=== PATIENT | female | born 1965 | race Caucasian/White ===

== ENCOUNTER → 2020-03-28 10:41 | Outpatient (CLI) | payer BC, SELFPAY ==
--- NOTE | ~2020-03-28 | DEXA_ITS ---
Bone Density Report Name: Jessica Cordon Age: 54 Sex: Female Ethnicity: White Date of : 1965 Indication: postmenopausal; screening for osteoporosis; parental hip fracture; Referring Provider: FALLON ALCALA Study: Bone densitometry was performed. Exam Date: March 28, 2020 Accession number: [id number] Bone Density: Region BMD T-score Z-score Classification AP Spine (L1-L4) 0.833 -1.9 -0.9 Osteopenia Femoral Neck (Left) 0.638 -1.9 -0.8 Osteopenia Total Hip (Left) 0.722 -1.8 -1.1 Osteopenia Femoral Neck (Right) 0.622 -2.0 -1.0 Osteopenia Total Hip (Right) 0.689 -2.1 -1.4 Osteopenia Total Hip Mean 0.706 -2.0 -1.3 Osteopenia World Health Organization criteria for BMD impression classify patients as: Normal (T-score at or above -1.0), Osteopenia (T-score between -1.0 and -2.5), or Osteoporosis (T-score at or below -2.5). 10-year Fracture Risk(1): Major Osteoporotic Fracture 15% Hip Fracture 1.0% Reported Risk Factors: [place] (), Neck BMD=0.622, BMI=24.1, parental fracture (1) FRAX(R) Version 3.08. Fracture probability calculated for an untreated patient. Fracture probability may be lower if the patient has received treatment. Clinical Information Provided by Patient: Parent has had a hip fracture Has used the following medications: Vitamin D, Calcium Patient maximum height was 68 Menopause Age: 53 Drinks caffeinated beverages Onset of menses at age 11 Number of children 2 Impression: The patient has low bone mass, based on the Right Total Hip T-score. The patient has an estimated ten-year risk of hip fracture of 1% and an estimated ten-year risk of major fracture of 15%, based on the WHO FRAX algorithm. The patient has risk factors, including: parental hip fracture. Discussion: BONE DENSITY IS LOW AT ONE OR MORE SKELETAL SITES. This patient's lowest T-score is low at one or more skeletal sites. It meets the World Health Organization's (WHO) criteria for ?low bone mass? (T-score between -1.0 and -2.5). The patient's 10-year risk of fracture as calculated by FRAX is less than the threshold where pharmacological therapy is recommended by the National Osteoporosis Foundation (NOF). However, all treatment decisions require clinical judgment and consideration of individual patient factors, including patient preferences, comorbidities, previous drug use, risk factors not captured in the FRAX model (e.g., frailty, falls, vitamin D deficiency, increased bone turnover, interval significant decline in bone density) and possible under or overestimation of fracture risk by FRAX. The patient should follow a healthful lifestyle (good nutrition with adequate calcium and vitamin D, and appropriate weight-bearing exercise). Follow-Up: Consider repeating this study in 2 to 3 years to reasses
--- NOTE | ~2020-03-28 | MM_ITS ---
EXAMINATION: MM screening rachel BI w curt HISTORY: Screening mammogram TECHNIQUE: Craniocaudal and mediolateral oblique 3-D tomosynthesis images were obtained and synthetic 2-D images were generated. CAD analysis was submitted and interpreted. COMPARISON: 12/19/2018, bilateral digital screening mammogram examinations BREAST PARENCHYMAL COMPOSITION: The breasts are heterogeneously dense, which may obscure small masses . FINDINGS: There is no evidence of suspicious mass, calcification, or architectural distortion to sugg est malignancy in either breast. There has been no suspicious interval change. IMPRESSION: 1. No mammographic evidence of malignancy. 2. Recommend routine screening mammography in one year. BI-RADS Category 1: Negative Reviewed, dictated and finalized at location A. AND RISK ANALYSIS MANAGER
== END ==
PROVIDERS: Visit Provider Obstetrics & Gynecology
DX: Z12.31 Encounter for screening mammogram for malignant neoplasm of breast (principal); Z78.0 Asymptomatic menopausal state; M85.88 Other specified disorders of bone density and structure, other site; M85.852 Other specified disorders of bone density and structure, left thigh; M85.851 Other specified disorders of bone density and structure, right thigh
CPT/HCPCS: 77063; 77067; 77080

== ENCOUNTER → 2022-06-15 10:14 | Outpatient (CLI) | payer BC, SELFPAY ==
--- NOTE | ~2022-06-15 | DEXA_ITS ---
Bone Density Report Name: BONNIE SALMERON Age: 56 Sex: Female Ethnicity: White Date of : 1965 Indication: osteopenia; parental hip fracture; postmenopausal Referring Provider: FALLON ALCALA Study: Bone densitometry was performed. Exam Date: June 15, 2022 Accession number: [id number] Bone Density: Region BMD T-score Z-score Classification AP Spine (L1-L4) 0.812 -2.1 -0.9 Osteopenia Femoral Neck (Left) 0.606 -2.2 -1.0 Osteopenia Total Hip (Left) 0.693 -2.0 -1.2 Osteopenia Femoral Neck (Right) 0.623 -2.0 -0.9 Osteopenia Total Hip (Right) 0.697 -2.0 -1.2 Osteopenia Total Hip Mean 0.695 -2.0 -1.2 Osteopenia World Health Organization criteria for BMD impression classify patients as: Normal (T-score at or above -1.0), Osteopenia (T-score between -1.0 and -2.5), or Osteoporosis (T-score at or below -2.5). 10-year Fracture Risk(1): Major Osteoporotic Fracture 17% Hip Fracture 1.3% Reported Risk Factors: [place] (), Neck BMD=0.606, BMI=25.7, parental fracture (1) FRAX(R) Version 3.08. Fracture probability calculated for an untreated patient. Fracture probability may be lower if the patient has received treatment. Previous Exams: Region Exam Age BMD T-score BMD Change BMD Change Date g/cm2 vs Baseline vs Previous AP Spine(L1-L4) 06/15/2022 56 0.812 -2.1 -0.021 -0.021 03/28/2020 54 0.833 -1.9 Total Hip(Left) 06/15/2022 56 0.693 -2.0 -0.029* -0.029* 03/28/2020 54 0.722 -1.8 Total Hip(Right) 06/15/2022 56 0.697 -2.0 0.008 0.008 03/28/2020 54 0.689 -2.1 *Denotes significance at 95% confidence level, LSC for AP Spine = 0.022 g/cm2, LSC for Total Hip = 0.027 g/cm2 Clinical Information Provided by Patient: Parent has had a hip fracture Has used the following medications: Vitamin D, Calcium Patient maximum height was 68 Menopause Age: 53 Drinks caffeinated beverages Onset of menses at age 11 Number of children 2 Impression: The patient has low bone mass, based on the Left Femoral Neck T-score. The patient has an estimated ten-year risk of hip fracture of 1.3% and an estimated ten-year risk of major fracture of 17%, based on the WHO FRAX algorithm. The patient has risk factors, including: parental hip fracture. The BMD for the Total Hip(Left) decreased, changing by -0.029 since the last DXA exam. Discussion: BONE DENSITY IS LOW AT ONE OR MORE SKELETAL SIT
--- NOTE | ~2022-06-15 | MM_ITS ---
EXAMINATION: MM screening [facility] BI w curt HISTORY: Screening mammogram TECHNIQUE: Craniocaudal and mediolateral oblique 3-D tomosynthesis images were obtained and synthetic 2-D images were generated. CAD analysis was submitted and interpreted. COMPARISON: 03/28/2020, 12/19/2018, bilateral screening mammogram examinations BREAST PARENCHYMAL COMPOSITION: There are scattered areas of fibroglandular density. FINDINGS: Possible new approximately 3 x 4.5 mm mass in the posterior lower outer left breast (cranio caudal Tomosynthesis image 15/). Otherwise there is no evidence of suspicious mass, calcification, or architectural distortion to sugg est malignancy in either breast. There has been no other suspicious interval change. IMPRESSION: 1. Possible new 3 x 4.5 mm mass in posterior lower outer left breast 2. Diagnostic left mammogram and left breast ultrasound examination are recommended BI-RADS Category 0: Incomplete: Needs additional imaging evaluation. Reviewed, dictated and finalized at location A. ONAL PROJECT MANAGER IMPRESSION: 1. Possible new 3 x 4.5 mm mass in posterior lower outer left breast 2. Diagnostic left mammogram and left breast ultrasound examination are recomme nded BI-RADS Category 0: Incomplete: Needs additional imaging evaluation.
== END ==
PROVIDERS: PCP Obstetrics & Gynecology; Visit Provider Obstetrics & Gynecology
DX: Z12.31 Encounter for screening mammogram for malignant neoplasm of breast (principal); R92.8 Other abnormal and inconclusive findings on diagnostic imaging of breast; M85.88 Other specified disorders of bone density and structure, other site; M85.852 Other specified disorders of bone density and structure, left thigh; M85.851 Other specified disorders of bone density and structure, right thigh
CPT/HCPCS: 77063; 77067; 77080

== ENCOUNTER → 2022-07-05 07:52 | Outpatient (CLI) | payer BC, SELFPAY ==
--- NOTE | ~2022-07-05 | MMUS_ITS ---
EXAMINATION: MM diagnostic rachel LT w curt, US breast LT limited HISTORY: Possible new 3 x 4.5 mm mass in posterior lower outer left breast on June 15, 2022 [facility] mammogram TECHNIQUE: Additional 3-D tomosynthesis images of the left breast were performed and synthetic 2-D im ages were generated. CAD analysis was submitted and interpreted. High resolution lower outer quadrant left breast ultrasound was performed. COMPARISON: June 15, 2022 bilateral screening mammogram FINDINGS: MAMMOGRAPHIC FINDINGS: There is an irregular approximately 4 mm opacity in the lower outer left breast. ULTRASOUND: 5:00 3 cm from nipple: Parallel circumscribed mildly irregular 2.2 x 4.1 x 3.3 mm hypoechoic area wit hout internal vascularity or posterior shadowing. Considering the fact that this is a new finding sin ce March 28, 2020 and a postmenopausal patient, with some irregular margins, ultrasound-guided bio psy is recommended. IMPRESSION: 1. New irregular 4 mm opacity in the lower outer left breast at 5:00 3 cm from nipple 2. Ultrasound-guided biopsy is recommended. BI-RADS category 4, suspicious findings. Dr. Bauer telephoned the report and ultrasound-guided biopsy recommendation on 07/05/2022 at 0905 hours to Azeb Garcia Reviewed, dictated and finalized at location A. ESSIONS MANAGER IMPRESSION: 1. New irregular 4 mm opacity in the lower outer left breast at 5:00 3 cm from nipple 2. Ultrasound-guided biopsy is recommended. BI-RADS category 4, suspicious findings. Dr. Bauer telephoned the report and ultrasound-guided biopsy recommendation on at 0905 hours to Azeb Garcia
== END ==
PROVIDERS: PCP Obstetrics & Gynecology; Visit Provider Obstetrics & Gynecology
DX: R92.8 Other abnormal and inconclusive findings on diagnostic imaging of breast (principal)
CPT/HCPCS: 76642; 77061; 77065; G0279

== ENCOUNTER 2023-04-03 08:38 | Emergency (ER) | payer BC, SELFPAY ==
[2023-04-03 08:40] VITALS: BP 126/77; PULSE 79; RESP 20; TEMP 36.8; O2SAT 98
--- NOTE | 2023-04-03 09:09 | ED.URI ---
HPI - URI/Sore Throat General Chief Complaint: Upper Respiratory Infection Stated Complaint: Cough/Headache/Body Aches Time Seen by Provider: 04/03/23 08:42 Source: patient Mode of arrival: ambulatory Limitations: no limitations History of Present Illness HPI Narrative: Jessica is a 57-year-old female patient presenting to clinic today with complaints of cough, sore throat, headache, and body aches times 2-3 days. 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 States that the symptoms have not quite improved at this time. Denies any fever or chills. Denies any chest pain or shortness of breath. No known exposure to anyone with COVID, flu, or strep. MD elicited complaint: cough, sore throat, nasal congestion and other (Headache, body aches) Related Data Home Medications Medication Instructions Recorded Confirmed polymyxin B sulfate 10,000 See Rx Instructions .Route .COMPLEX 04/03/23 04/03/23 unit-trimethoprim 1 mg/mL eye drops Allergies Allergy/AdvReac Type Severity Reaction Status Date / Time Sulfa (Sulfonamide Allergy Intermediate Rash Verified 04/03/23 08:57 Antibiotics) Review of Systems Review of Systems: Pertinent positives per HPI. Patient denies any fever, chills, rash, visual changes, dizziness, shortness of breath, chest pain, palpitations, nausea, vomiting, diarrhea, constipation, abdominal pain, or any urinary issues. PMFSH Past Medical History Medical History (Updated 04/03/23 @ 09:10 by Gerardo Woods APRN) Anemia Vaginal delivery Surgical History Surgical History Previous section [place] teeth removed Social History Social History Smoking status: Never smoker Second hand tobacco smoke exposure: No Alcohol intake: current Comments At the time of my signature, I reviewed and agree with the nursing past medical, surgical, social, and family history. There is no relevant family history pertinent to the patient complaint. Exam Narrative: General: Well-developed, well nourished, in no apparent distress Head: Normocephalic, atraumatic Eyes: Pupils equally round and reactive to light bilaterally, EOM intact, sclera and conjunctive clear, no discharge, lids normal Ears: TMs intact and clear, ear canals clear, no drainage, grossly hearing normal. Nose: Nares patent, clear nasal discharge, no inflammation, no sinus tenderness. Mouth: Oral pharynx red without lesions or masses, good dentition, MMM. Neck: Supple, trachea midline, enlargement of anterior cervical nodes, no thyroid masses or goiter palpable. Cardio: Regular rate and rhythm, s1 and s2 normal, no murmur appreciated. Resp: Clear to auscultation bilaterally, no rhonchi, rales, wheezing or rubs Course Course Emergency Course: Portions of this record may have been created with voice recognition software. Level of Care: Express Care Visit Vital Signs Vital signs: Vital Signs Temperature 36.8 C 04/03/23 08:40 Pulse Rate 79 04/03/23 08:40 Respiratory Rate 20 04/03/23 08:40 Blood Pressure 126/77 04/03/23 08:40 Pulse Oximetry 98 04/03/23 08:40 Oxygen Delivery Room Air 04/03/23 08:40 Temperature 36.8 C 04/03/23 08:40 Pulse Rate 79 04/03/23 08:40 Respiratory Rate 20 04/03/23 08:40 Blood Pressure 126/77 04/03/23 08:40 Pulse Oximetry 98 04/03/23 08:40 Oxygen Delivery Room Air 04/03/23 08:40 Vital signs reviewed MDM - URI/Sore Throat MDM Narrative Medical decision making narrative: At the time of visit patient is resting comfortably on the exam table. Patient is nontoxic appearing. Strep testing COVID testing was performed. Strep COVID test was negative. Strep was positive. Will send in amoxicillin prescription. Supportive measures were discussed with the patient she voiced understanding dis
== END 2023-04-03 09:13 | disposition home or self-care (01) ==
PROVIDERS: Emergency Provider Nurse Practitioner Family; PCP Family Medicine
DX: J02.0 Streptococcal pharyngitis (principal); Z20.822 Contact with and (suspected) exposure to COVID-19
CPT/HCPCS: 87426; 87880; 99213; C9803; G0463

== ENCOUNTER 2023-04-27 08:37 | Emergency (ER) | payer BC, SELFPAY ==
[2023-04-27 08:44] VITALS: BP 121/67; PULSE 82; RESP 16; TEMP 36.6; O2SAT 97
--- NOTE | 2023-04-27 09:22 | ED.URI ---
HPI - URI/Sore Throat General Chief Complaint: Upper Respiratory Infection Stated Complaint: Cough/Headache/Body Aches Time Seen by Provider: 04/27/23 09:22 Source: patient, RN notes reviewed and old records reviewed Mode of arrival: ambulatory Limitations: no limitations History of Present Illness HPI Narrative: 57 year old female presents to [facility] care with complaints of body aches, headaches, cough and sinus drainage since Saturday 5 days duration. Patient reports that cough at night is keeping her awake, has taken Delsym cough syrup and Tylenol and Ibuprofen for her symptoms. Patient reports that she has felt feverish but has not taken her temperature. Patient denies any shortness of breath, no tachypnea noted, respirations even and nonlabored. MD elicited complaint: fever, cough, rhinorrhea, nasal congestion and other (headache and body aches) Onset (ago): day(s) (5) Severity: moderate Able to tolerate fluids by mouth: Yes Treatments prior to arrival: acetaminophen, ibuprofen and other (Delsym cough syrup) Related Data Allergies Allergy/AdvReac Type Severity Reaction Status Date / Time Sulfa (Sulfonamide Allergy Intermediate Hives Verified 04/27/23 09:03 Antibiotics) Review of Systems Review of Systems: CONSTITUTIONAL: Reports malaise, chills, sweats, or fever. EYES: Denies visual changes, redness, or discharge. ENT: Reports rhinorrhea, congestion, no sinus pain, no otalgia and no sore throat. CARDIOVASCULAR: Denies chest pain, palpitations, or edema. RESPIRATORY: Reports cough.? Denies dyspnea. GASTROINTESTINAL: Denies abdominal pain, nausea, vomiting, diarrhea SKIN: Denies rash or itching. MUSCULOSKELETAL: Reports myalgia. NEUROLOGIC: Reports headache. All systems reviewed & are unremarkable except as noted in HPI and below PMFSH Past Medical History Medical History (Updated 04/28/23 @ 00:01 by Purnima Holloway) Anemia Vaginal delivery Surgical History Surgical History Previous section [place] teeth removed Social History Social History (Updated 04/28/23 @ 09:29 by Afshan Crane NP) Smoking status: Never smoker Second hand tobacco smoke exposure: No Alcohol intake: current Substance use type: does not use Living arrangements: with family Gender identity (if verbalized by the patient): Female Comments At time of signature, agree with nursing past medical, surgical, social and family history. There is no relevant family history pertinent to the presenting complaint Exam Narrative: GENERAL: Well-appearing, well-nourished, and in no acute distress. HEAD: Normocephalic EYES: PERRLA, conjunctivae clear ENT: Nares clear, turbinates edematous and erythematous, clear discharge. Mucous membranes moist. TM pearly bowman with dull light reflex bilaterally; no tragal tenderness. Oropharynx erythematous without lesions. Tonsils not enlarged and without exudate, no drooling, no hoarseness, no trismus, uvula midline, post nasal drainage. NECK: Supple. No lymphadenopathy CHEST: Clear to auscultation, breath sounds equal. No wheezing, rhonchi, rales, or stridor. No respiratory distress, speaks in full sentences.cough,SAO2 97% on room air HEART: Regular rate and rhythm. No murmur heard. SKIN: Warm, dry, no rash. NEURO: Alert and oriented x3. PSYCH: Normal mood and affect Course Course Emergency Course: Patient is aware of diagnosis, understands and agrees to treatment plan.? Anticipatory guidance given.? Patient agrees to follow-up as directed and is aware of reasons to seek care at the emergency department. Portions of this record may have been created with voice recognition software Level of Care: Express Care Visit Vital Signs Vital signs: Vital Signs Temperature 36.6 C 04/27/23 08:44 Pulse Rate 82 04/27/23 08:44 Respiratory Rate 16 04/27/23 08:44 Blood Pressure 121/67 12
== END 2023-04-27 09:42 | disposition home or self-care (01) ==
PROVIDERS: Emergency Provider Registered Nurse; PCP Family Medicine
DX: J10.1 Influenza due to other identified influenza virus with other respiratory manifestations (principal); Z20.822 Contact with and (suspected) exposure to COVID-19
CPT/HCPCS: 87426; 87804; 99213; C9803; G0463

== ENCOUNTER 2023-05-04 08:27 | Emergency (ER) | payer BC, SELFPAY ==
[2023-05-04 08:30] VITALS: BP 96/58; PULSE 106; RESP 16; TEMP 37.5; O2SAT 98
--- NOTE | 2023-05-04 08:53 | ED.GENADULT ---
HPI - General Adult General Chief complaint: Upper Respiratory Infection Stated complaint: Cough/Fever/Headache Source: patient, RN notes reviewed and old records reviewed Mode of arrival: ambulatory Limitations: no limitations History of Present Illness HPI narrative: 49-year-old female presents to [facility] with complaints cough, congestion, myalgia, headache, shortness of breath. Patient states symptoms started around April 26 patient was seen here on April 27 and diagnosed with influenza A. Patient states is getting worse and is now having pain with inspiration, yellow phlegm production, and fevers. Onset (ago): day(s) (12-12) Related Data Allergies Allergy/AdvReac Type Severity Reaction Status Date / Time Sulfa (Sulfonamide Allergy Intermediate Hives Verified 04/27/23 09:03 Antibiotics) Review of Systems Constitutional: Constitutional: Reports no additional constitutional complaints, Reports body ache(s), Reports chills, Reports fatigue, Reports fever(s) and Denies headache(s) Eyes: Eyes: Reports no additional eye complaints and Denies blurry vision ENT: Reports system reviewed and no additional complaints, except as documented, Denies vertigo, Denies dizziness, Denies ear discharge, Denies otalgia, Denies facial pain, Reports headache(s), Reports nasal congestion, Denies nasal discharge, Reports sinus pain, Reports sinus pressure and Denies sore throat Cardiovascular: Cardiovascular: Reports no additional cardiovascular complaints, Denies chest pain, Denies chest pain at rest, Denies rapid heart rate and Denies dyspnea Respiratory: Respiratory: Reports no additional respiratory complaints, Reports chest congestion, Reports cough, Reports pain on inspiration, Reports pain with cough and Denies dyspnea Gastrointestinal: Gastrointestinal: Denies abdominal pain, Denies diarrhea, Denies nausea and Denies vomiting Integumentary/Breasts: Skin/Breast: Denies rash Neurologic: Reports system reviewed and no additional complaints, except as documented, Denies vertigo, Denies dizziness and Denies headache(s) Endocrine: Endocrine: Denies fatigue [facility] Past Medical History Medical History (Updated 05/04/23 @ 09:00 by Gale Bundy APRN) Anemia Vaginal delivery Surgical History Surgical History Previous section [place] teeth removed Social History Social History Smoking status: Never smoker Second hand tobacco smoke exposure: No Alcohol intake: current Substance use type: does not use Living arrangements: with family Gender identity (if verbalized by the patient): Female Comments At the time of my signature, I reviewed and agree with the nursing past medical, surgical, social, and family history. There is no relevant family history pertinent to the patient complaint. Exam Const: General: cooperative, no acute distress, ill appearing acutely and well nourished Nutritional Appearance: well nourished Orientation/consciousness: patient oriented x3 Limitations: no limitations HENMT: Head: normal to inspection and normocephalic Ears: external ears normal, TM's normal bilaterally, mastoids normal and Abnormal EAC present Face/Nose/Sinus: normal facial exam Face and sinus: normal facial exam Mouth: Yes Normal oral and palatal mucosa present, Yes oropharynx normal and Yes moist mucous membranes Throat: uvula midline, posterior oropharynx abnormal erythema and no uvular edema Eyes: General: appearance normal, both eyes and all related structures Sclera: sclerae normal Pupils: Equal, round and reactive pupils present Resp: Effort & Inspection: normal respiratory effort, able to speak in complete sentences, no audible wheezes, no cough, no respiratory distress and no retractions Auscultation: clear to auscultation bilaterally, no crackles, no rales, no rhonchi and wheezes scat
== END 2023-05-04 09:06 | disposition home or self-care (01) ==
PROVIDERS: Emergency Provider Registered Nurse; PCP Family Medicine
DX: J20.9 Acute bronchitis, unspecified (principal)
CPT/HCPCS: 99213; G0463

== ENCOUNTER 2024-10-19 08:47 | Outpatient (CLI) | payer BC, SELFPAY ==
--- NOTE | ~2024-10-19 | DEXA_ITS ---
Bone Density Report Name: BONNIE SALMERON Age: 58 Sex: Female Ethnicity: White Date of : 1965 Indication: postmenopausal; screening for osteoporosis; Referring Provider: FALLON ALCALA Study: Bone densitometry was performed. Exam Date: October 19, 2024 Accession number: [id number] Bone Density: Region BMD T-score Z-score Classification AP Spine(L1-L4) 0.744 -2.8 -1.4 Osteoporosis Femoral Neck (Left) 0.596 -2.3 -1.0 Osteopenia Total Hip (Left) 0.667 -2.3 -1.3 Osteopenia Femoral Neck (Right) 0.627 -2.0 -0.7 Osteopenia Total Hip (Right) 0.703 -2.0 -1.0 Osteopenia Total Hip Mean 0.685 -2.2 -1.2 Osteopenia World Health Organization criteria for BMD impression classify patients as: Normal (T-score at or above -1.0), Osteopenia (T-score between -1.0 and -2.5), or Osteoporosis (T-score at or below -2.5). 10-year Fracture Risk: FRAX not reported because: Some T-score for Spine Total or Hip Total or Femoral Neck at or below -2.5 Clinical Information Provided by Patient: Has used the following medications: Vitamin D, Calcium Patient maximum height was 67.0 Menopause Age: 53 No regular weight bearing exercise Drinks caffeinated beverages Onset of menses at age 11 Number of children 2 Impression: The patient has osteoporosis, based on the Total Spine T-score. Discussion: INCREASED RISK OF FRACTURE. BONE DENSITY IS UNDESIRABLY LOW AT ONE OR MORE SKELETAL SITES, CONSISTENT WITH POSTMENOPAUSAL OSTEOPOROSIS. This patient's lowest T-score meets the World Health Organization's (WHO) criteria for osteoporosis at one or more sites (T-score -2.5 or below). In untreated patients, the risk of osteoporotic fracture increases approximately two-fold for each 1.0 SD decrease in T-score. Low bone density is not the only risk factor for fracture; also consider factors such as patient's age, frailty or poor health, risk of falling, risk of injury, previous osteoporotic fracture, family history of osteoporosis, cigarette smoking, low body weight, etc. Not everyone with low bone mineral density has osteoporosis; osteomalacia and other metabolic bone disorders should also be considered. Patients who have osteoporosis should be evaluated for specific diseases and conditions (secondary causes) that may cause or contribute to bone loss. The [place] Association of Clinical Endocrinologists (AACE) and National Osteoporosis Foundation (NOF) recommend pharmacologic intervention for all postmenopausal women whose T-score is in this range. The patient should follow a healthful lifestyle (good nutrition with adequate calcium and vitamin D, and appropriate weight-bearing exercise). Follow-Up: Consider a repeat BMD and Vertebral Fracture Assessment (VFA) exam in 2 years or sooner if medically necessary, to reassess this patient's status. Reported by: CHULA on 10/19/2024 9:26:00 AM. Reviewed, dictated and finalized at location A.
--- OUTSIDE RECORDS SUMMARY | 2024-10-19 09:00 | XMS_ITS | Referral Summary ---
Author Organization [place] [id number] [place] Address [address] [place] [id number] Care Team Providers Care Salt Washer Name Role Phone Luis Alberto Holm MD Unavailable [phone] Emani Bartholomew Primary Care Provider [phone] Encounters Date Type Department Care Team Description 09/22/2024 8:17 PM CDT - 09/22/2024 9:38 PM CDT Emergency [facility] Emergency Department [address] [place] [address] Brayden Anderson MD Closed head injury, initial encounter (Primary Dx); Chin laceration, initial encounter; TMJ (sprain of temporomandibular joint), initial encounter; Left shoulder strain, initial encounter; Accidental fall, initial encounter Discharge Disposition: Discharge to home or self care 09/16/2024 Orders Only [facility] Surgery [facility] Floor [address] [place] [address] Aft, Rhianna Stewart MD PhD Abnormal mammogram of both breasts (Primary Dx) from Last 3 Months Allergies Active Allergy Reactions Criticality Noted Date Comments Sulfa (Sulfonamide Antibiotics) Rash Medium 11/2018 Medications ibuprofen (ADVIL,MOTRIN) 200 mg tab/cap Take 200 mg by mouth every 6 (six) hours as needed for pain Active calcium carbonate 500 mg calcium (1,250 mg) capsule Take by mouth Active cholecalciferol (VITAMIN D-3) 1,000 unit Take 1,000 Int'l Units by mouth daily Active multivitamin tablet Active tiZANidine (ZANAFLEX) 2 mg tabletIndications:TM J (sprain of temporomandibular joint), initial encounter,Left shoulder strain, initial encounter Take 1-2 tablets (2-4 mg total) by mouth every 8 (eight) hours as needed (Take as directed to relax muscles) Collaborating physician Brayden Anderson MD 30 tablet 09/23/19 Active naproxen (NAPROSYN) 500 mg tabletIndications:Cl osed head injury, initial encounter,Chin laceration, initial encounter,TMJ (sprain of temporomandibular joint), initial encounter,Left shoulder strain, initial encounter Take 1 tablet (500 mg total) by mouth 2 (two) times a day with meals PRN pain. Collaborating physician Brayden Anderson MD 30 tablet 09/23/19 Active Active Problems Problem Noted Date Diagnosed Date Closed head injury 09/22/2024 Chin laceration 09/22/2024 TMJ (sprain of temporomandibular joint), initial encounter 09/22/2024 Left shoulder strain, initial encounter 09/23/19 Accidental fall 09/22/2024 Breast mass in female 08/09/2022 Abnormal mammogram of both breasts 08/09/2022 Immunizations Immunization Administration Dates Next Due Influenza, Quadrivalent, Spl it, Intramuscular 01/26/2019 Influenza, Quadrivalent, Spl it, Preservative Free, Intramuscular 01/17/2021,01/26/2019,03/05/2018 Influenza, Trivalent, Cell C ulture-based MDCK, Preservative Free, Antibiotic Free, Intramuscular 02/07/2023,03/09/2022 Moderna Sars-cov-2 Bivalent Vaccine 50 Mcg/0.5 mL (12+ YRS)-Blue/Linn 03/09/2022 Td, adsorbed 05/06/2004 Tdap 02/10/2019 ZOSTER Recombinant 05/26/2020,03/24/2020 Social History Tobacco Use Types Packs/Day Years Used Date Smoking Tobacco: Never Smokeless Tobacco: Never Tobacco Cessation:Counseling Given: Not Answered AUDIT-C Answer Date Recorded Q1: How often [...] feel afraid or unsafe? Denies 09/22/2024 Comments Unknown Sex and Gender Information Value Date Recorded Sex Assigned at Not on file Legal Sex Female 3:10 PM [employer] Gender Identity Not on file Sexual Orientation Not on file Last Filed Vital Signs Vital Sign Reading Time Taken Comments Blood Pressure 113/83 09/22/2024 9:37 PM CDT Pulse 64 09/22/2024 9:37 PM CDT Temperature 36.3 C (97.4 F) 09/22/2024 6:09 PM CDT Respiratory Rate 16 09/22/2024 9:37 PM CDT Oxygen Saturation 98% 09/22/2024 9:37 PM CDT Inhaled Oxygen Concentration - - Weight 68 kg (150 lb) 09/22/2024 6:09 PM CDT Height 172.7 cm (5' 8) 09/22/2024 6:09 PM CDT Body Mass Index 22.81 09/22/2024 6:09 PM CDT Plan of Treatment Not on file Medical Devices Implanted Type Area Residential Property Consultant Device Identifier Shelf Expiration Date Model / Serial / Lot [employer] Peripheral V[employer] Ultraclip Bard 17ga 10cm 2 Trigger Permanent Ultrasound [id number] - [id number] Implanted:Qty: 1 on 08/29/2022 at [facility] [employer] [id number] / / [employer] Eviva 13cm Identifier Biopsy Site Kwamp-Hjchp-55 - [id number] Implanted:Qty: 1 on 03/17/2024 at [facility] [employer] [id number] 11/28/2024 [facility] / [id number] Procedures Procedure Name Priority Date/Time Associated Diagnosis Comments CT FACIAL BONES WO CONTRAST ED 09/22/2024 6:[address] HEAD WO CONTRAST ED 09/22/2024 6:46 PM CDT XR SHOULDER LEFT 2 OR MORE VIEWS ED 09/22/2024 6:22 PM CDT SCREENING MAMMOGRAM BILATERAL W KOFI Schedule Routine, Read Routine (OP Routine) 09/02/2023 9:37 AM CDT Screening mammogram, encounter for from Last 3 Months or Most Recently Relevant to Health Maintenance Results * CT Facial Bones WO Contrast (09/22/2024 6:47 PM CDT) Anatomical Region Laterality Modality Head and Neck N/A Computed Tomogra phy 09/22/2024 8:07 PM CDT Narrative 09/22/2024 8:09 PM CDT EXAM DESCRIPTION: CT FACIAL BONES WO CONTRAST REASON FOR STUDY: Accidental fall with facial injury Patient presents status post fall from standing with a laceration to her chin, patient is on blood thinners. TECHNIQUE: Noncontrast computed tomography images through the paranasal sinuses. Reconstructed MPR images reviewed. All images stored on PACS. Automated exposure control was used as a dose optimization technique for this examination. COMPARISON: None FINDINGS: BONES: No fracture or bone lesion. SOFT TISSUES: No abscess. No inflammatory changes. SINUSES: No mucosal thickening or fluid. No mass. NASAL CAVITY: Midline nasal septum. ORBITS: No significant abnormalities visualized. TMJ: Normal. MASTOIDS: Well-aerated. IACs symmetric, grossly normal. BRAIN: Limited view. No acute findings. OTHER: No other significant finding. IMPRESSION: Unremarkable maxillofacial CT. THIS IS AN ELECTRONICALLY VERIFIED FINAL REPORT 09/22/2024 8:09 PM - Electronically signed by Tushar Veronica M.D. KH: ARJUN Report ID: [id number] Reading Location: [id number] Procedure Note Tushar Veronica MD - 09/22/2024 EXAM DESCRIPTION: CT FACIAL BONES WO CONTRAST REASON FOR STUDY: Accidental fall with facial injury Patient presents status [facility], patient is on blood thinners. TECHNIQUE: Noncontrast computed tomography images through the paranasal sinuses. Reconstructed MPR images reviewed. All images stored on PACS. Automated exposure control was used as a dose optimization technique forthis examination. COMPARISON: None FINDINGS: BONES: No fracture or bone lesion. SOFT TISSUES: No abscess. No inflammatory changes. SINUSES: No mucosal thickening or fluid. No mass. NASAL CAVITY: Midline nasal septum. ORBITS: No significant abnormalities visualized. TMJ: Normal. MASTOIDS: Well-aerated. IACs symmetric, grossly normal. BRAIN: Limited view. No acute findings. OTHER: No other significant finding. IMPRESSION: Unremarkable maxillofacial CT. THIS IS AN ELECTRONICALLY VERIFIED FINAL REPORT 09/22/2024 8:09 PM - Electronically signed by Tushar Veronica M.D. KH: ARJUN Report ID: [id number] Reading Location: [place] [id number] PROCEDURES Final Resu lt * CT Head WO Contrast (09/22/2024 6:46 PM CDT) Anatomical Region Laterality Modality Head and Neck N/A Computed Tomogra phy 09/22/2024 8:04 PM CDT Narrative 09/22/2024 8:07 PM CDT EXAM DESCRIPTION: CT HEAD WO CONTRAST REASON FOR STUDY: Accidental fall with facial injury Patient presents status post fall from standing with a laceration to her chin, patient is on blood thinners. TECHNIQUE: Axial images acquired through the brain without intravenous contrast. Images stored on PACS. Automated exposure control was used as a dose optimization technique for this examination. COMPARISON: None FINDINGS: BRAIN: No hemorrhage, edema or mass effect. No recent infarct. Normal white matter. EXTRA-AXIAL SPACES: No fluid collections. No masses. CALVARIUM: No fracture. SINUSES/MASTOIDS: No fluid or mucosal thickening. ORBITS: No significant abnormality. OTHER: No other significant abnormality. IMPRESSION: No acute intracranial findings. THIS IS AN ELECTRONICALLY VERIFIED FINAL REPORT 09/22/2024 8:07 PM - Electronically signed by Tushar DÍAZ: ARJUN Report ID: [id number] Reading Location: [id number] Procedure Note Tushar Veronica MD - 09/22/2024 EXAM DESCRIPTION: CT HEAD WO CONTRAST REASON FOR STUDY: Accidental fall with facial injury Patient presents status post fall from standing with a laceration to [facility], patient is on blood thinners. TECHNIQUE: Axial images acquired through the brain without intravenous contrast. Images stored on PACS. Automated exposure control was used asa dose optimization technique for this examination. COMPARISON: None FINDINGS: BRAIN: No hemorrhage, edema or mass effect. No recent infarct. Normal white matter. EXTRA-AXIAL SPACES: No fluid collections. No masses. CALVARIUM: No fracture. SINUSES/MASTOIDS: No fluid or mucosal thickening. ORBITS: No significant abnormality. OTHER: No other significant abnormality. IMPRESSION: No acute intracranial findings. THIS IS AN ELECTRONICALLY VERIFIED FINAL REPORT 09/22/2024 8:07 PM - Electronically signed by Tsuhar Veronica M.D. KH: ARJUN Report ID: [id number] Reading Location: [id number] [facility] IMG CT PROCEDURES Final Resu lt * XR Shoulder Left 2 or More Views (09/22/2024 6:22 PM CDT) Anatomical Region Laterality Modality Upper Extremities, Shoulder Left Comp uted Radiography 09/22/2024 7:27 PM CDT Narrative 09/22/2024 7:30 PM CDT EXAM DESCRIPTION: XR SHOULDER LEFT 2 OR MORE VIEWS REASON FOR STUDY: fall c/o a fall today. Pt was on a walk when she tripped and fell hitting her chin and left arm. TECHNIQUE: 4 radiographic view(s) of the left shoulder . COMPARISON: 02/09/2019. FINDINGS: Visualized chest is unremarkable.. Joint alignment appears normal. There is minimal acromioclavicular osteoarthritis. Glenohumeral joint space appears normal. No acute fracture or aggressive bone lesion is seen. IMPRESSION: No acute osseous findings. THIS IS AN ELECTRONICALLY VERIFIED FINAL REPORT 09/22/2024 7:30 PM - Electronically signed by Jerson Dugan M.D. MZ: MZ Report ID: [id number] Reading Location: [id number] Procedure Note Jerson Dugan MD - 09/22/2024 EXAM DESCRIPTION: XR SHOULDER LEFT 2 OR MORE VIEWS REASON FOR STUDY: fall c/o a fall today. Pt was on a walk when she tripped and fell hitting herchin and left arm. TECHNIQUE: 4 radiographic view(s) of the left shoulder . COMPARISON: 02/09/2019. FINDINGS: Visualized chest is unremarkable.. Joint alignment appears normal. Thereis minimal acromioclavicular osteoarthritis. Glenohumeral joint spaceappears normal. No acute fracture or aggressive bone lesion is seen. IMPRESSION: No acute osseous findings. THIS IS AN ELECTRONICALLY VERIFIED FINAL REPORT 09/22/2024 7:30 PM - Electronically signed by Jerson Dugan M.D. MZ: MZ Report ID: [id number] Reading Location: [id number] Brayden Anderson MD IMG XR PROCEDURES Final Res ult * Screening Mammogram Bilateral W Kofi (09/02/2023 9:37 AM CDT) Anatomical Region Laterality Modality Breast Bilateral Mammography Narrative 09/03/2023 4:43 PM CDT Mammogram Technique: Bilateral Digital Breast Tomosynthesis, Bilateral C-view 2D Screening mammogram. Views obtained: bilateral craniocaudal and bilateral mediolateral oblique. Computer Aided Detection was performed. Mammogram Findings: The present examination has been compared to prior imaging studies performed on 12/19/2018, 03/28/2020, 06/15/2022 and 07/05/2022, and at [facility] on 08/09/2022. The breasts are heterogeneously dense, which may obscure small masses. There is an area of architectural distortion with possible associated calcifications in the middle upper outer quadrant of the right breast. There is no suspicious abnormality in the left breast. Impression: Area of architectural distortion with possible associated calcifications in the right breast requires additional evaluation. Diagnostic mammogram and possible ultrasound of the right breast are recommended at this time. OVERALL FINAL ASSESSMENT: BI-RADS CATEGORY 0: Incomplete: Need additional imaging evaluation. Procedure Note Shannon Card MD - 09/03/2023 Mammogram Technique: Bilateral Digital Breast Tomosynthesis, Bilateral C-view 2D Screening mammogram. Views obtained: bilateral craniocaudal and bilateral mediolateral oblique. Computer Aided Detection was performed. Mammogram Findings: The present examination has been compared to prior imaging studies performed on 12/19/2018, 03/28/2020, 06/15/2022 and 07/05/2022, and at [facility] on 08/09/2022. The breasts are heterogeneously dense, which may obscure small masses. There is an area of architectural distortion with possible associated calcifications in the middle upper outer quadrant of the right breast. There is no suspicious abnormality in the left breast. Impression: Area of architectural distortion with possible associated calcificationsin the right breast requires additional evaluation. Diagnostic mammogramand possible ultrasound of the right breast are recommended at this time. OVERALL FINAL ASSESSMENT: BI-RADS CATEGORY 0: Incomplete: Need additional imaging evaluation. us Self Screening Mammogram IMG MAMMO PROCEDURES Fi nal Result from Last 3 Months or Most Recently Relevant to Health Maintenance [place] [id number] [place] Member Subscriber Plan / Payer (Ef fective 2019-Present) Name:Jessica Batres Relation to Subscriber:Self Name:Jessica Batres Cristel Payer ID:[id number] (NAIC) Type:HEALTHCARE/EXCHANGE Address: [address] [place] Care Teams Salt Washer Relationship Specialty Start Date End Date Emani Bartholomew PA [address] [facility] [address] [place] [address] PCP - General Donation Worker 07/18/23 Luis Alberto Holm MD [id number] [facility] [address] [facility] [address] [place] [address] Referring Physician Obstetrics and Gynecology 07/09/22
--- OUTSIDE RECORDS SUMMARY | 2024-10-19 09:01 | XMS_ITS | Clinical Summary ---
Author Organization [facility] Address [address] [place] [address] Phone Care Team Providers Care Bead Inspector Name Role Phone Josh Veliz MD Unavailable [phone] Luis Alberto Holm MD Unavailable [phone] Emani Bartholomew Primary Care Provider + Allergies Active Allergy Reactions Criticality Noted Date Comments Sulfa Antibiotics Rash Medications Multiple Vitamin (MULTI-VITAMIN PO) Active Cholecalciferol (VITAMIN D3 PO) Take 1,000 Int'l Units by mouth daily. Active Calcium Carbonate (CALCIUM 500 PO) Take by mouth. Active albuterol 108 (90 Base) MCG/ACT Aerosol Solution INHALE 2 PUFFS BY MOUTH EVERY 4 HOURS NEEDED FOR WHEEZING 8.5 g 08/13/2022 Active Acetaminophen (TYLENOL PO) Take by mouth. Active Ibuprofen (ADVIL PO) Take by mouth. Active Active Problems Problem Noted Date Diagnosed Date Umbilical hernia without obstruction and without gangrene 07/07/2015 Insomnia Encounters Date Type Department Care Team Description 07/29/2024 Results Follow-Up [facility] - Family Medicine [facility] [address] [place] [id number] Emani Bartholomew PAC LIPID PANEL, CMP (COMPREHENSIVE METABOLIC PANEL), COMPLETE BLOOD COUNT (CBC) WITH DIFF, THYROID STIMULATING HORMONE (TSH) 07/27/2024 7:40 AM CDT Lab [facility] [address] [place] [address] [facility] Well adult exam (Primary Dx) Discharge Disposition: Discharged to home or Selfcare 07/27/2024 Travel 07/20/2024 3:00 PM CDT Office Visit [facility] - [place] [address] [place] [address] Emani Bartholomew, PAC Well adult exam (Primary Dx); Encounter for immunization Discharge Disposition: Discharged to home or Selfcare 07/20/2024 Travel from Last 3 Months Immunizations Immunization Administration Dates Next Due Covid-19, Mrna, Lnp-s, Bival ent, Moderna, 50 Mcg or 25 mcg dose 03/09/2022 Covid-19, Mrna, Lnp-s, Pf, 3 0 Mcg/0.3 Ml Dose (Beautylish) 07/22/2020,07/02/2020 Influenza Vaccine 01/26/2019 Influenza Vaccine, MDCK,quad rivalent, pres free 02/07/2023,03/09/2022 Influenza Vaccine, Quadrivalent, PF 01/17/2021,0 01/26/2019,03/05/2018 Influenza, Injectable, Quadrivalent 01/26/2019 Influenza,Split Virus,Trivalent,Injectable,PF 05/07/2024 Pneumococcal conjugate PCV20 , polysaccharide FES206 conjugate, adjuvant, PF 07/20/2024 TD VACCINE 05/06/2004 TDAP Vaccine 02/10/2019 Zoster Vaccine Recombinant 05/26/2020,03/24/2020 Family History Medical History Relation Name Comments Heart Disease Father Hypertension Father Ulcerative Colitis Mother Colon claudine linsey--due to diverticulitis Relation Name Status Comments Father Alive Mother Alive Social History Tobacco Use Types Packs/Day Years Used Date Smoking Tobacco: Never Smokeless Tobacco: Never Tobacco Cessation:Counseling Given: Not Answered Alcohol Use Standard Drinks/Week Comments Yes 0 (1 standard drink = 0.6 oz pur e alcohol) social [employer] Utilities Answer Date Recorded In the past 12 months has [employer], gas, oil, or water [employer] threatened to shut off services in your home? No 07/02/2023 Social Connection and Isolation Panel Answer Date Recorded In a typical week, how many times do you talk on the phone with family, friends, or neighbors? More than three times a week 07/02/2023 How often do you get togethe r with friends or relatives? Once a week 07/02/2023 Attends Mosque Services Not on file 07/02 Active Member of Clubs or Organizations Not on f ile 07/02/2023 Attends Club or Organization Meetings Not on sanjana e 07/02/2023 Marital Status Not on file 07/02/2023 AUDIT-C Answer Date Recorded Q1: How often do you have a drink containing alc ohol? 2-4 times a month 07/02/2023 Q2: How many drinks containi ng alcohol do you have on a typical day when you are drinking? 1 or 2 07/02/2023 Q3: How often do you have si x or more drinks on one occasion? Less than monthly 07/02/2023 Overall Financial Resource Strain (CARDIA) Answe r Date Recorded How hard is it for you to pa y for the very basics like food, housing, medical care, and heating? Not very hard 07/02/2023 PHQ-2 Answer Date Recorded Total Score - Questions 1-9 20 06/01/2021 [employer] ional [employer] - Occupational Stress Questionnaire Answer Date Recorded Do you feel stress - tense, restless, nervous, or anxious, or unable to sleep at night because your mind is troubled all the time - these days? To some extent 07/02/2023 Exercise Vital Sign Answer Date Recorde d On average, how many days pe r week do you engage in moderate to strenuous exercise (like a brisk walk)? 5 days Minutes of Exercise per Session Not on file 07/02/2023 Hunger Vital Sign Answer Date Recorded Within the past 12 months, y ou worried that your food would run out before you got the money to buy more. Never true 07/02/19 24 Within the past 12 months, t he food you bought just didn't last and you didn't have money to get more. Never true 07/02/2023 PRAPARE - Transportation Answer Date Re corded In the past 12 months, has l ack of transportation kept you from medical appointments or from getting medications? No 06/07 In the past 12 months, has l ack of transportation kept you from meetings, work, or from getting things needed for daily living? No 07/02/2023 Housing Stability Vital Sign Answer Rex e Recorded In the last 12 months, was t here a time when you were not able to pay the mortgage or rent on time? No 07/02/2023 In the last 12 months, how many places have you lived? 1 07/02/2023 In the last 12 months, was t here a time when you did not have a steady place to sleep or slept in a senior care (including now)? No 07/02/2023 Education Answer Date Recorded What is the highest level of school you have completed or the highest degree you have received? 12th grade 07/12/2022 Sexually Active Control Partners Comments Yes Comments No Sex and Gender Information Value Date Recorded Sex Assigned at Not on file Legal Sex Female 10:37 PM CDT Gender Identity Not on file Sexual Orientation Not on file Last Filed Vital Signs Vital Sign Reading Time Taken Comments Blood Pressure 112/70 07/20/2024 2:57 PM CDT Pulse 63 07/20/2024 2:57 PM CDT Temperature 36.5 C (97.7 F) 07/20/2024 2:57 PM CDT Respiratory Rate 16 07/31/2023 8:56 AM CDT Oxygen Saturation 99% 07/20/2024 2:57 PM CDT Inhaled Oxygen Concentration - - Weight 69.4 kg (153 lb) 07/20/2024 2:57 PM CDT Height 170.2 cm (5' 7) 07/20/2024 2:57 PM CDT Body Mass Index 23.96 07/20/2024 2:57 PM CDT Plan of Treatment Upcoming Encounters Date Type Department Care Team (Late st Contact Info) Description 07/22/2025 3:30 PM CDT Office Visit [facility] - Family Medicine [facility] [address] [place] [phone] Emani Bartholomew, PAC [address] [place] [address] Health Maintenance Due Date Last Done Comments Cologuard 2009 Immunochemical Fecal Occult Blood 2009 Pap Smear 12/25/2021 12/25/2018, 04/09/2016 Mammogram 09/01/2024 09/02/2023, 08/05, 08/09/2022, Additional history exists Colonoscopy 06/22/2025 06/22/2015 Colorectal Cancer Screening 06/22/2025 Cervical Cancer Screening (CCS) 05/14/2028 HPV/Cotest 05/14/2028 05/14/2023 Td Immunization Every 10 Years (Adults With 1 Tdap) 02/10/2029 02/10/2019, 05/06/2004 Respiratory Syncytial Virus (RSV) Immunization (Adult) (1 - 1-dose 75+ series) 12/10/2039 Zoster Immunization Completed 05/26/2020, 0 Influenza Immunization Completed 5, 02/07/2023, 03/09/2022, Additional history exists SARS-COV-2 Immunization Completed 05/07/19 25, 02/07/2023, 03/09/2022, Additional history exists Pneumococcal Immunization (50+ years) Completed 07/20/2024 Pneumococcal Immunization Combined Discontinued 07/20/2024 Hepatitis B Immunization Discontinued Hepatitis C Virus (HCV) Screening Discontinued Human Papillomavirus (HPV) Immunization Aged Out No longer eligible based on patient's age to complete this topic Meningococcal Immunization (ACWY) Aged Out No longer eligible based on patient's age to complete this topic Rotavirus Immunization Aged Out No lo nger eligible based on patient's age to complete this topic Procedures Procedure Name Priority Date/Time Associated Diagnosis Comments THYROID STIMULATING HORMONE (TSH) Routine 07/27/2024 Well adult exam COMPLETE BLOOD COUNT (CBC) WITH DIFF Routine 07/27/2024 Well adult exam CMP (COMPREHENSIVE METABOLIC PANEL) Routine 07/27/2024 Well adult exam LIPID PANEL Routine 07/27/2024 Well adult exam MAMMOGRAM BILATERAL GENERIC 09/02/2023 12:00 AM CDT PATHOLOGY CYTOLOGY COBBLER APPRENTICE Routine 12/25/2018 from Last 3 Months or Most Recently Relevant to Health Maintenance Results * THYROID STIMULATING HORMONE (TSH) (07/27/2024) Blood 07/27/2024 Liane Peku Publicationstcher PAC CHEMISTRY ORDERABLES Fin al Result * LIPID PANEL (07/27/2024) Blood 07/27/2024 Liane Fritcher PAC CHEMISTRY ORDERABLES Fin al Result * CMP (COMPREHENSIVE METABOLIC PANEL) (07/27/2024) Blood 07/27/2024 Result [facility] Liane Fritcher PAC CHEMISTRY ORDERABLES Fin al Result * COMPLETE BLOOD COUNT (CBC) WITH DIFF (07/27/2024) Blood 07/27/2024 Liane Peku Publicationstcher PAC HEMATOLOGY ORDERABLES Fi nal Result * MAMMOGRAM BILATERAL MISCELLANEOUS (09/02/2023 12:00 AM CDT) 09/02/2023 Provider Scan IMG MAMMO ORDERABLES Final Resul t SCAN * PATHOLOGY CYTOLOGY COBBLER APPRENTICE (12/25/2018) Specimen of unknown material (specimen) Result [facility] Luis Alberto Holm MD PATHOLOGY/CYTOLOGY ORDERABLE S Final Result from Last 3 Months or Most Recently Relevant to Health Maintenance [place] [id number] [place] [id number] Care Teams Bead Inspector Relationship Specialty Start Date End Date Emani Bartholomew PAC [address] [place] [address] PCP - General Physician Supervisor [employer] 07/17/23 Josh Veliz MD [address] [facility] [address] [place] [address] General Surgery 07/11/15 Luis Alberto Holm MD [address] [facility] [address] [place] [address] Obstetrics & Gynecology 07/18/16
--- OUTSIDE RECORDS SUMMARY | 2024-10-19 09:01 | XMS_ITS | Clinical Summary ---
Author Organization [place] [id number] [place] Address [address] [place] [id number] Care Team Providers Care Software Business Analyst Name Role Phone Luis Alberto Holm MD Unavailable [phone] Emani Bartholomew Primary Care Provider [phone] Allergies Active Allergy Reactions Criticality Noted Date [...] physician Brayden Anderson MD 30 tablet 09/23/19 25 Active naproxen (NAPROSYN) 500 mg tabletIndications:Cl osed head injury, initial encounter,Chin laceration, initial encounter,TMJ (sprain of temporomandibular joint), initial encounter,Left shoulder strain, initial encounter Take 1 tablet (500 mg total) by mouth 2 (two) times a day with meals PRN pain. Collaborating physician Brayden Anderson MD 30 tablet 09/23/19 25 Active Active Problems Problem Noted Date Diagnosed Date Closed head injury 09/22/2024 Chin laceration 09/22/2024 TMJ (sprain of temporomandibular joint), initial encounter 09/22/2024 Left shoulder strain, initial encounter 09/23/19 25 Accidental fall 09/22/2024 Breast mass in female 08/09/2022 Abnormal mammogram of both breasts 08/09/2022 Encounters Date Type Department Care Team Description 09/22/2024 8:17 PM CDT - 09/22/2024 9:38 PM CDT Emergency [facility] Emergency Department [address] [place] [address] Brayden Anderson MD Closed head injury, initial encounter (Primary Dx); Chin laceration, initial encounter; TMJ (sprain of temporomandibular joint), initial encounter; Left shoulder strain, initial encounter; Accidental fall, initial encounter Discharge Disposition: Discharge to home or self care 09/16/2024 Orders Only [facility] Surgery [facility] [address] [place] [phone] Aft, Rhianna Stewart MD PhD Abnormal mammogram of both breasts (Primary Dx) from Last 3 Months Immunizations Immunization Administration Dates Next Due Influenza, Quadrivalent, Spl it, Intramuscular 01/26/2019 Influenza, Quadrivalent, Spl it, Preservative Free, Intramuscular 01/17/2021,01/26/2019,03/05/2018 Influenza, Trivalent, Cell C ulture-based MDCK, Preservative Free, Antibiotic Free, Intramuscular 02/07/2023,03/09/2022 Moderna Sars-cov-2 Bivalent Vaccine 50 Mcg/0.5 mL (12+ YRS)-Blue/Linn 03/09/2022 Td, adsorbed 05/06/2004 Tdap 02/10/2019 ZOSTER Recombinant 05/26/2020,03/24/2020 Surgical History Surgery Date Site/Laterality Comments SECTION BLADDER SURGERY BREAST BIOPSY 08/29/2022 Left BREAST BIOPSY 03/17/2024 Right Medical History Medical History Date Comments Osteoporosis Family History Medical History Relation Name Comments Heart disease Other Relation Name Status Comments Other Social History Tobacco Use Types Packs/Day Years [...] on file Legal Sex Female 3:10 PM OCC MED PHYSICIAN Gender Identity Not on file Sexual Orientation Not on file Obstetrics History Last Filed Vital Signs Vital Sign Reading [...] 09/22/2024 6:09 PM CDT Plan of Treatment Health Maintenance Due Date Last Done Comments Cervical Cancer Screening 1964 Colon Cancer Screening-Colonoscopy 1964 Depression Screening 1964 Hepatitis C Screening 1964 Hepatitis B Screening 1982 Regular Well Visit/Exam 18-64 1982 Covid-19 Vaccine ( season) 2024 03/09/2022, 07/22/2020, 07/02/2020 Breast Cancer Screening-Mammogram 09/01/2024 09/02/2023, 12/19/2018 DTaP/Tdap/Td Vaccine (2 - Td or Tdap) 02/10/2029 02/10/2019, 05/06/2004 Zoster Vaccine Completed 05/26/2020, 03/24/2020 Influenza Vaccine Completed 05/07/2024, , 03/09/2022, Additional history exists Pneumococcal vaccine <65 Aged Out No longer eligible based on patient's age to complete this topic Medical Devices Implanted Type Area Bar Gauger And Lubricator Tender Device Identifier Shelf Expiration Date Model / Serial / Lot Bard Peripheral Vascular Ultraclip Bard 17ga 10cm 2 Trigger Permanent Ultrasound [id number] - [id number] Implanted:Qty: 1 on 08/29/2022 at [facility] [employer] [id number] / / [employer] Eviva 13cm Identifier Biopsy Site [id number] - [id number] Implanted:Qty: 1 on 03/17/2024 at [facility] [employer] [id number] 11/28/2024 [facility]-EVIV A-13 / / [id number] Procedures Procedure Name Priority Date/Time Associated Diagnosis [...] 8:09 PM - Electronically signed by Tushar DÍAZ: ARJUN Report ID: [id number] Reading Location: [place] [address] Procedure Note Tushar Veronica MD - 09/22/2024 EXAM DESCRIPTION: CT FACIAL BONES WO CONTRAST REASON FOR STUDY: Accidental fall with facial injury Patient presents status post fall from standing with a laceration to [facility], patient is on blood thinners. TECHNIQUE: Noncontrast [...] 8:09 PM - Electronically signed by Tushar DÍAZ: ARJUN Report ID: [id number] Reading Location: [place] [address] PROCEDURES Final Resu [...] 8:07 PM - Electronically signed by Tushar Veronica M.D. KH: ARJUN Report ID: [id number] Reading Location: [id number] Procedure Note Tushar Veronica MD - 09/22/2024 EXAM DESCRIPTION: CT HEAD WO CONTRAST REASON FOR STUDY: Accidental fall with facial injury Patient presents status post fall from standing with a laceration to herchin, patient is on blood thinners. TECHNIQUE: Axial [...] 8:07 PM - Electronically signed by Tushar Veronica M.D. KH: KH Report ID: [id number] Reading Location: [id number] Bravo DIAS IMG CT PROCEDURES Final Resu [...] Electronically signed by Jerson Dugan M.D. MZ: PB Report ID: [id number] Reading Location: [id number] Procedure Note Jerson Dugan MD - 09/22/2024 [...] Jerson Dugan M.D. MZ: MZ Report ID: [id number] Reading Location: [place] [address] us Brayden Anderson MD IMG XR PROCEDURES Final [...] 12/19/2018, 03/28/2020, 06/15/2022 and 07/05/2022, and at [facility] on 08/09/2022. The breasts are heterogeneously dense, [...] 12/19/2018, 03/28/2020, 06/15/2022 and 07/05/2022, and at [facility] on 08/09/2022. The breasts are heterogeneously dense, [...] Most Recently Relevant to Health Maintenance [place] [employer] [phone] [place] Care Teams Software Business Analyst Relationship Specialty Start Date End Date Emani Bartholomew PA [address] [address] PCP - General Bander Operator 07/18/23 Luis Alberto Holm MD [address] [facility] [address] [facility] [address] [place] [address] Referring Physician Obstetrics and Gynecology 07/09/22
--- OUTSIDE RECORDS SUMMARY | 2024-10-19 09:01 | XMS_ITS | Encounter Summary ---
Author Organization [facility] Healthcare Address [address] [place] [address] Care Team Providers Care Laminator Printed Circuit Boards Name Role Phone Aurelia Luciano MD Primary Care Provider [phone] Reason for Visit * Diagnostic Imaging (Routine) - Closed Specialty Diagnoses / Procedures Referred By Stan rosario Referred To Contact Procedures Breast Imaging Screening Outside Reference Kishan Danielle NP Phone: tel: fax: Referral ID Status Reason Start Date Expiration Date Visits Re quested Visits Authorized [id number] Closed 07/12/2022 08/11/2023 1 1 Encounter Details Date Type Department Care Team (Late st Contact Info) Description 03/28/2020 Hospital Encounter [facility] [address] [place] [phone] Social History Tobacco Use Types Packs/Day Years [...] on file Legal Sex Female 3:10 PM CRITICAL CARE REGISTERED NURSE Gender Identity Not on file Sexual Orientation Not on file documented as of this encounter Functional Status * Audit-C Score Answer Date of Assessment Author 2 [...] SCREENING OUTSIDE REFERENCE Routine 03/28/2020 12:00 AM CRITICAL CARE REGISTERED NURSE documented in this encounter Results * Breast Imaging Screening Outside Reference (03/28/2020 12:00 AM CRITICAL CARE REGISTERED NURSE) Impressions [facility] - 07/12/2022 2:36 PM CRITICAL CARE REGISTERED NURSE These images are for Reference purposes only and have not been reviewed by [facility]. There will be no report generated by a [facility]iologist. Narrative [facility]_M[facility]MO[facility] - 07/12/2022 2:36 PM CRITICAL CARE REGISTERED NURSE EXAMINATION: Images For Reference Purposes Only us Kishan Danielle NP IMG MAMMO PROCEDURES Final Result [facility] documented in this encounter Visit Diagnoses Not on filedocumented in this encounter Care Teams Laminator Printed Circuit Boards Relationship Specialty Start Date End Date Aurelia Luciano MD PCP - General Family Medicine 01/29/19 07/17/23 documented as of this encounter
--- OUTSIDE RECORDS SUMMARY | 2024-10-19 09:01 | XMS_ITS | Encounter Summary ---
Author Organization [facility] Healthcare Address [address] [place] [address] Care Team Providers Care Precision Honing Machine Operator Name Role Phone Unavailable Primary Care Provider Unavailabl e Reason for Visit * Diagnostic Imaging (Routine) - Closed Specialty Diagnoses / Procedures Referred By Stan t Referred To Contact Procedures Breast Imaging Screening Outside Reference Kishan Danielle NP Phone: tel: fax: Referral ID Status Reason Start Date Expiration Date Visits Re quested Visits Authorized [id number] Closed 07/12/2022 08/11/2023 1 1 Encounter Details Date Type Department Care Team (Late st Contact Info) Description 12/19/2018 Hospital Encounter [facility] [address] [place] [address] Social History Tobacco Use Types Packs/Day Years [...] on file Legal Sex Female 3:10 PM SUPERVISING AIRPLANE PILOT Gender Identity Not on file Sexual Orientation [...] CDT) Impressions [facility] - 07/12/2022 2:37 PM SUPERVISING AIRPLANE PILOT These images are for Reference purposes only and have not been reviewed by [facility]. There will be no report generated by a [facility] Radiologist. Narrative [facility]_M[facility]MO[facility] - 07/12/2022 2:37 PM SUPERVISING AIRPLANE PILOT EXAMINATION: Images For Reference Purposes Only us Kishan Danielle NP IMG MAMMO PROCEDURES Final Result [facility] documented in this encounter Visit Diagnoses Not on filedocumented in this encounter
--- OUTSIDE RECORDS SUMMARY | 2024-10-19 09:01 | XMS_ITS | Encounter Summary ---
Author Organization [facility] Address [address] [place] [address] Phone Care Team Providers Care Inspector Hot Forgings Name Role Phone Aurelia Luciano MD Primary Care Provider [phone] Josh Veliz MD Unavailable [phone] Luis Alberto Holm MD Unavailable [phone] Emani Bartholomew Primary Care Provider + Reason for Visit * Reason Comments Medication Refill Encounter Details Date Type Department Care Team (Late st Contact Info) Description 08/13/2022 Refill [facility] [address] [place] [address] Ruben Bear MD [address] [address] Medication Refill Social History Tobacco Use Types Packs/Day Years Used Date Smoking Tobacco: Never Smokeless Tobacco: Never Alcohol Use Standard Drinks/Week Comments Yes 0 (1 standard drink = 0.6 oz pur e alcohol) social PHQ-2 Answer Date Recorded Total Score - Questions 1-9 20 01/2021 Education Answer Date Recorded What is the highest level of school you have completed or the highest degree you have received? 12th grade 07/12/2022 Comments No Sex and Gender Information Value Date Recorded Sex Assigned at Not on file Legal Sex Female 10:37 PM CDT Gender Identity Not on file Sexual Orientation Not on file COVID-19 Exposure Response Date Recorded In the last 10 days, have yo u been in contact with someone who was confirmed or suspected to have Coronavirus/COVID-19? No / Unsure 07/16/2022 7:55 AM CDT documented as of this encounter Miscellaneous Notes * Telephone Encounter - Jesusita Feliciano RN - 08/13/2022 10:20 AM CDT PRN medication Per nursing clinical judgement, provider to review and approve the medication(s) order(s) if appropriate. Requested Prescriptions Pending Prescriptions Disp Refills albuterol 108 (90 Base) MCG/ACT Aerosol Solution [Pharmacy Med Name: ALBUTEROL HFA INH (200 PUFFS) 8.5GM] 8.5 g Sig: INHALE 2 PUFFS BY MOUTH EVERY 4 HOURS NEEDED FOR WHEEZING Short Acting Inhaled Beta-Agonists Protocol Passed - 08/13/2022 9:21 AM Passed - Visit with relevant provider in past 12 months or upcoming 90 days Recent Visits Date Type Provider Dept 07/16/22 Office Visit Aurelia Luciano MD [facility] 05/28/22 Office Visit Ruben Bear MD [facility] Showing recent visits within past 365 days and meeting all other requirements Future Appointments No visits were found meeting these conditions. Showing future appointments within next 90 days and meeting all other requirements documented in this encounter Plan of Treatment Upcoming Encounters Date Type Department Care Team (Late st Contact Info) Description 07/22/2025 3:30 PM CDT Office Visit [facility] - [facility] [address] [place] [address] Emani Bartholomew, ROSEMARY [address] [place] [address] documented as of this encounter Visit Diagnoses Not on filedocumented in this encounter Additional Health Concerns Infection Onset Date Last Indicated Resolved Time COVID - 19 05/29/2023 05/29/2023 06/08/2023 12:1 6 AM METALWORKING INSTRUCTOR Respiratory Rule-Out 05/29/2023 05/29/2023 024 11:12 AM METALWORKING INSTRUCTOR C. difficile Rule-Out 05/29/2023 05/29/20232023 12:16 AM METALWORKING INSTRUCTOR Respiratory Rule-Out 07/31/2023 07/31/2023 024 9:22 AM CDT COVID - 19 07/31/2023 07/31/2023 07/31/2023 9:21 AM CDT Assessment Noted Time PHQ-9 Depression Total Score: 20 021 1:00 PM CDT documented as of this encounter Care Teams Inspector Hot Forgings Relationship Specialty Start Date End Date Aurelia Luciano MD [address] [place] [address] PCP - General Family Medicine 04/12/15 07/16/23 Emani Bartholomew PAC [address] [place] [address] PCP - General Physician Outpatient Scheduler 07/17/23 Josh Veliz MD [address] [address] General Surgery 07/11/15 Luis Alberto Holm MD [facility] [address] [place] [address] Obstetrics & Gynecology 07/18/16 documented as of this encounter
== END 2024-10-19 08:48 | disposition home or self-care (01) ==
PROVIDERS: Visit Provider Obstetrics & Gynecology
DX: M81.0 Age-related osteoporosis without current pathological fracture (principal); M85.89 Other specified disorders of bone density and structure, multiple sites; Z78.0 Asymptomatic menopausal state; Z13.820 Encounter for screening for osteoporosis
CPT/HCPCS: 77080

== ENCOUNTER 2024-12-09 08:16 | Emergency (ER) | payer BC, SELFPAY ==
[2024-12-09 08:21] VITALS: BP 102/60; PULSE 86; RESP 16; TEMP 37; O2SAT 99
--- OUTSIDE RECORDS SUMMARY | 2024-12-09 08:23 | XMS_ITS | Clinical Summary ---
Author Organization [id number] Address [address] [place] [address] Care Team Providers Care Buyer Intern Name Role Phone Luis Alberto Holm MD Unavailable [phone] Emani Bartholomew Primary Care Provider [phone] Allergies Active Allergy Reactions Criticality Noted Date [...] Encounters Date Type Department Care Team Description 11/16/[address] [facility] Surgery [address] [place] [address] [address] [place] [address] Lizbeth Oswald PA Abnormal mammogram of both breasts (Primary Dx) 11/13/2024 9:15 AM CDT - 11/13/2024 11:59 PM CDT Hospital Encounter [facility] - Breast Imaging [address] [place] [address] 8 [place] [address] Abnormal mammogram of both breasts Discharge Disposition: Discharge to home or self care 11/13/2024 9:00 AM CDT Office Visit [facility] Surgery [address] [place] [address] [address] [place] [id number] Lizbeth Oswald PA Radial scar of right breast (Primary Dx); Encounter for screening mammogram for malignant neoplasm of breast 09/22/2024 8:17 PM CDT - 09/22/2024 9:38 PM CDT Emergency [facility] Emergency Department [address] [place] [address] Brayden Anderson MD Closed head injury, initial encounter (Primary Dx); Chin laceration, initial encounter; TMJ (sprain of temporomandibular joint), initial encounter; Left shoulder strain, initial encounter; Accidental fall, initial encounter Discharge Disposition: Discharge to home or self care 09/16/[address] [facility] Surgery [address] [place] [address] [address] [place] [id number] Aft, Rhianna Stewart MD PhD Abnormal mammogram of both breasts (Primary Dx) from Last 3 Months Immunizations Immunization Administration Dates Next Due Influenza, Quadrivalent, Spl it, Intramuscular 01/26/2019 Influenza, Quadrivalent, Spl it, Preservative Free, Intramuscular 01/17/2021,01/26/2019,03/05/2018 Influenza, Trivalent, Cell C ulture-based MDCK, Preservative Free, Antibiotic Free, Intramuscular 02/07/2023,03/09/2022 Influenza, Trivalent, Preser vative Free, Intramuscular 05/07/2024 Moderna Sars-cov-2 Bivalent Vaccine 50 Mcg/0.5 mL (12+ YRS)-Blue/Linn 03/09/2022 Td, adsorbed 05/06/2004 Tdap 02/10/2019 ZOSTER Recombinant 05/26/2020,03/24/2020 Surgical History Surgery Date Site/Laterality Comments SECTION BLADDER SURGERY BREAST BIOPSY 08/29/2022 Left benign BREAST BIOPSY 03/17/2024 Right benign Medical History Medical History Date Comments Osteoporosis [...] on file 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 Gender Identity Not on file Sexual Orientation Not on file Obstetrics History Para Term AB IAB SAB Ectopic Multiple Livin g Live Births 2 2 Date Outcome GA Total Labor Labor/2nd/3rd Weight Sex Type Anes PTL Yue A1 A5 Name Clin Last Filed Vital Signs Vital Sign Reading Time Taken Comments Blood Pressure 113/83 09/22/2024 9:37 PM CDT Pulse 64 09/22/2024 9:37 PM CDT Temperature 36.3 C (97.4 F) 09/22/2024 6:09 PM CDT Respiratory Rate 16 09/22/2024 9:37 PM CDT Oxygen Saturation 98% 09/22/2024 9:37 PM CDT Inhaled Oxygen Concentration - - Weight 68 kg (150 lb) 11/13/2024 9:03 AM CDT Height 173 cm (5' 8.11) 11/13/2024 9:03 AM CDT Body Mass Index 22.73 11/13/2024 9:03 AM CDT Plan of Treatment Health Maintenance Due Date Last Done Comments Cervical Cancer Screening 1965 Colon Cancer Screening-Colonoscopy 1965 Depression Screening 1965 Hepatitis C Screening 1965 Hepatitis B Screening 1982 Regular Well Visit/Exam 18-64 1982 Covid-19 Vaccine ( season) 2024 03/09/2022, 07/22/2020, 07/02/2020 Influenza Vaccine (#1) 2025 , 02/07/2023, 03/09/2022, Additional history exists Breast Cancer Screening-Mammogram 11/13/2025 11/13/2024, 09/02/2023, 12/19/2018 DTaP/Tdap/Td Vaccine (2 - Td or Tdap) 02/10/2029 02/10/2019, 05/06/2004 Zoster Vaccine Completed 05/26/2020, 03/24/2020 Pneumococcal vaccine <65 Aged Out No longer eligible based on patient's age to complete this topic Medical Devices Implanted Type Area Program Management Analyst Device Identifier Shelf Expiration Date Model / Serial / Lot Bard Peripheral Vascular Ultraclip Bard 17ga 10cm 2 Trigger Permanent Ultrasound [id number] - [id number] Implanted:Qty: 1 on 08/29/2022 at [facility] [employer] [id number] / / [employer] Eviva 13cm Identifier Biopsy Site [id number] - [id number] Implanted:Qty: 1 on 03/17/2024 at [facility] [employer] [id number] 11/28/2024 [facility]-EVIV A-13 / / [id number] Procedures Procedure Name Priority Date/Time Associated Diagnosis Comments DIAGNOSTIC MAMMOGRAM BILATERAL W KOFI Schedule Routine, Read Routine (OP Routine) 11/13/2024 10:00 AM CDT Abnormal mammogram of both breasts CT FACIAL BONES WO CONTRAST ED 09/22/2024 6:[address] HEAD WO CONTRAST ED 09/22/2024 6:46 PM CDT XR SHOULDER LEFT 2 OR MORE VIEWS ED 09/22/2024 6:22 PM CDT from Last 3 Months Results * Diagnostic Mammogram Bilateral W Kofi (11/13/2024 10:00 AM CDT) Anatomical Region Laterality Modality Breast Bilateral Mammography 11/13/2024 12:3 9 PM CDT Impressions 11/13/2024 8:09 PM CDT 1. Stable architectural distortion in the right breast, compatible with biopsy-proven radial scar. 2. No evidence of malignancy in EITHER breast. OVERALL FINAL ASSESSMENT: BI-RADS Category 2: Benign. RECOMMENDATION: Bilateral diagnostic mammography is recommended in one year, due in November 2025, to ensure a two-year stability of the right breast architectural distortion. Dictated by: Deepali Jha MD The radiology attending physician has personally reviewed this study, and had reviewed and/or edited this written report and agrees with it. Electronically signed by: Laura Kerr MD Narrative 11/13/2024 8:09 PM CDT EXAMINATION: BILATERAL DIGITAL DIAGNOSTIC MAMMOGRAM INCLUDING CAD AND BILATERAL DIGITAL BREAST TOMOSYNTHESIS HISTORY: 58-year-old female presents for 6-month follow-up of biopsy-proven radial scar (mini cork clip) diagnosed via stereotactic guided biopsy of architectural distortion on 03/17/2024. The architecture distortion was initially identified on this screening mammography dated 09/02/2023. Patient preferred imaging follow-up over surgical excision. She is also due for her annual mammography. She also has history of benign left breast biopsy on 08/29/2022 (ribbon clip) yielding fibrocystic changes with cystic apocrine metaplasia. Patient has no current breast complaints. COMPARISON: Multiple prior mammograms was most recent one dated 03/17/2024 TECHNIQUE: Full field digital mammographic views of BOTH breasts were performed, including computer aided detection (CAD) and BILATERAL digital breast tomosynthesis (DBT). BREAST PARENCHYMAL COMPOSITION: There are scattered areas of fibroglandular density. MAMMOGRAM FINDINGS: Right breast: There is stable architectural distortion with a biopsy clip in the upper slightly outer anterior right breast compared to 09/02/2023. This area was previously biopsied and proven to be radial scar. There is no new suspicious abnormality in the right breast. Left breast: There is no suspicious finding or significant change in the left breast. A biopsy clip is noted in the lower outer left breast. us Rhianna Owens MD PhD IMG MAMMO PROCEDURES Final Result * CT Facial Bones WO Contrast (09/22/2024 [...] Tushar Veronica M.D. KH: ARJUN Report ID: [id number] Reading Location: [id number] Procedure Note Tushar Veronica MD - 09/22/2024 EXAM DESCRIPTION: CT FACIAL BONES WO CONTRAST REASON FOR STUDY: Accidental fall with facial injury Patient presents status post fall from standing with a laceration to herchin, patient is on blood thinners. TECHNIQUE: Noncontrast [...] Tushar Veronica M.D. KH: ARJUN Report ID: [id number] Reading Location: [place] [address] [address] [facility] CT PROCEDURES Final Resu lt * CT [...] signed by Tushar DÍAZ: ARJUN Report ID: [id number] Reading Location: [id number] Procedure Note Tushar Veronica MD - 09/22/2024 EXAM DESCRIPTION: CT HEAD WO CONTRAST REASON FOR STUDY: Accidental fall with facial injury Patient presents status post fall from standing with a laceration to the dimock center, patient is on blood thinners. TECHNIQUE: [...] signed by Tushar DÍAZ: ARJUN Report ID: [id number] Reading Location: [id number] [address] IMG CT PROCEDURES Final Resu [...] Jerson Dugan M.D. MZ: MZ Report ID: [id number] Reading Location: [id number] Procedure Note Jerson Dugan MD - 09/22/2024 [...] Jerson Dugan M.D. MZ: MZ Report ID: [id number] Reading Location: [id number] Brayden Anderson MD IMG XR PROCEDURES Final Res ult from Last [address] [place] [address] [address] [place] Care Teams Buyer Intern Relationship Specialty Start Date End Date Emani Bartholomew PA [address] [address] PCP - General Medical Stenographer 07/18/23 Luis Alberto Holm MD [address] [place] [address] Referring Physician Obstetrics and Gynecology 07/09/22
--- OUTSIDE RECORDS SUMMARY | 2024-12-09 08:23 | XMS_ITS | Encounter Summary ---
Author Organization [facility] Healthcare Address [address] [place] [address] Care Team Providers Care Store Person Name Role Phone Aurelia Luciano MD Primary Care Provider [phone] Reason for Visit * Diagnostic Imaging (Routine) - Closed Specialty Diagnoses / Procedures Referred By Stan rosario Referred To Contact Procedures Breast Imaging Screening Outside Reference Kishan Danielle NP Phone: tel: fax: Referral ID Status Reason Start Date Expiration Date Visits Re quested Visits Authorized [id number] Closed 07/12/2022 08/11/2023 1 1 Encounter Details Date Type Department Care Team (Late st Contact Info) Description 03/28/2020 Hospital Encounter [facility] [address] [place] [id number] Social History Tobacco Use Types Packs/Day Years [...] on file 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 There will be no report generated by a [facility] Radiologist. Narrative [facility]MO[facility] - 07/12/2022 2:36 PM BUZZSAW OPERATOR EXAMINATION: Images For Reference Purposes Only us Kishan Danielle NP IMG MAMMO PROCEDURES Final Result [facility] documented in this encounter Visit Diagnoses Not on filedocumented in this encounter Care Teams Store Person Relationship Specialty Start Date End Date Aurelia Luciano MD PCP - General Family Medicine 01/29/19 07/17/23 documented as of this encounter
--- OUTSIDE RECORDS SUMMARY | 2024-12-09 08:23 | XMS_ITS | Clinical Summary ---
Author Organization [facility] Address [address] [place] [address] Phone Care Team Providers Care Pen Rider Name Role Phone Josh Veliz MD Unavailable [phone] Luis Alberto Holm MD Unavailable [phone] Emani Bartholomew Primary Care Provider + Allergies [...] without obstruction and without gangrene 07/07/2015 Insomnia Immunizations Immunization Administration Dates Next Due Covid-19, Mrna, Lnp-s, Bival ent, Moderna, 50 Mcg or 25 mcg dose 03/09/2022 Covid-19, Mrna, Lnp-s, Pf, 3 0 Mcg/0.3 Ml Dose ([employer]) 07/22/2020,07/02/2020 Influenza Vaccine 01/26/2019 Influenza Vaccine, MDCK,quad rivalent, pres free 02/07/2023,03/09/2022 Influenza Vaccine, Quadrivalent, PF 01/17/2021,0 01/26/2019,03/05/2018 Influenza, Injectable, Quadrivalent 01/26/2019 Influenza,Split Virus,Trivalent,Injectable,PF 05/07/2024 Pneumococcal conjugate PCV20 , polysaccharide DPN061 conjugate, adjuvant, PF 07/20/2024 TD VACCINE 05/06/2004 [...] Recorded In the past 12 months has th e bunkersofa, gas, oil, or water Vehrity threatened to shut off services in your home? No 07/02/2023 Social Connection and Isolation Panel Answer Date Recorded In a typical week, how many times do you talk on the phone with family, friends, or neighbors? More than three times a week 07/02/2023 How often do you get togethe r with friends or relatives? Once a week 07/02/2023 Attends [employer] Not on file 07/02 Active Member [...] Recorded Total Score - Questions 1-9 20 0 01/2021 [facility] - Occupational Stress Questionnaire Answer Date Recorded [...] place to sleep or slept in a half-way (including now)? No 07/02/2023 Education Answer Date [...] Visit [facility] - [facility] [address] [place] [address] Emani Bartholomew, PAC [address] [place] [address] Health Maintenance Due Date Last Done Comments Cologuard 2009 Immunochemical Fecal Occult Blood 2009 Pap Smear 12/25/2021 12/25/2018, 04/09/2016 Mammogram 09/01/2024 09/02/2023, 08/05, 08/09/2022, Additional history exists Influenza Immunization (#1) 01/04/202506/2024, 02/07/2023, 03/09/2022, Additional history exists Colonoscopy 06/22/2025 06/22/2015 Colorectal Cancer Screening 06/22/2025 Cervical Cancer Screening (CCS) 05/14/2028 HPV/Cotest 05/14/2028 05/14/2023 Td Immunization Every 10 Years (Adults With 1 Tdap) 02/10/2029 02/10/2019, 05/06/2004 Respiratory Syncytial Virus (RSV) Immunization (Adult) (1 - 1-dose 75+ series) 12/10/2039 Zoster Immunization Completed 05/26/2020, SARS-COV-2 Immunization Completed 05/07/19 25, 02/07/2023, 03/09/2022, [...] Procedure Name Priority Date/Time Associated Diagnosis Comments MAMMOGRAM BILATERAL GENERIC 09/02/2023 12:00 AM CDT PATHOLOGY CYTOLOGY REMNANT SORTER Routine 12/25/2018 from Last 3 Months or Most Recently Relevant to Health Maintenance Results * MAMMOGRAM BILATERAL MISCELLANEOUS (09/02/2023 12:00 AM CDT) 09/02/2023 us Provider Scan IMG MAMMO ORDERABLES Final Resul t SCAN * PATHOLOGY CYTOLOGY REMNANT SORTER (12/25/2018) Specimen of unknown material (specimen) Luis Alberto Holm MD PATHOLOGY/CYTOLOGY ORDERABLE S Final Result from Last 3 Months or Most Recently Relevant to Health Maintenance [place] [address] [facility] [place] [address] Care Teams Pen Rider Relationship Specialty Start Date End Date Emani Bartholomew PAC [address] [place] [address] PCP - General Physician Avionics Systems Technician 07/17/23 Josh Veliz MD #[address] [facility] [address] [place] [address] General Surgery 07/11/15 Luis Alberto Holm MD [address] [facility] [address] [facility] [address] [place] [address] Obstetrics & Gynecology 07/18/16
--- OUTSIDE RECORDS SUMMARY | 2024-12-09 08:23 | XMS_ITS | Encounter Summary ---
Author Organization [facility] Healthcare Address [address] [place] [address] Care Team Providers Care Mechanic Assistant Name Role Phone Unavailable Primary Care Provider Unavailabl e Reason for Visit * Diagnostic Imaging (Routine) - Closed Specialty Diagnoses / Procedures Referred By Stan t Referred To Contact Procedures Breast Imaging Screening Outside Reference Kishan Danielle NP Phone: tel: fax: Referral ID Status Reason Start Date Expiration Date Visits Re quested Visits Authorized [id number] Closed 07/12/2022 08/11/2023 1 1 Encounter Details Date Type Department Care Team (Late st Contact Info) Description 12/19/2018 Hospital Encounter [facility] [address] [place] [address] Social History Tobacco Use Types Packs/Day Years [...] on file 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 There will be no report generated by a [facility] Radiologist. Narrative [facility]_MAMMO[facility] - 07/12/2022 2:37 PM VICE PRESIDENT EDUCATION EXAMINATION: Images For Reference Purposes Only us Kishan Danielle NP IMG MAMMO PROCEDURES Final Result [facility] documented in this encounter Visit Diagnoses Not on filedocumented in this encounter
--- OUTSIDE RECORDS SUMMARY | 2024-12-09 08:23 | XMS_ITS | Encounter Summary ---
Author Organization [facility] Address [address] [place] [address] Phone Care Team Providers Care Human Service Specialist Name Role Phone Aurelia Luciano MD Primary Care Provider Josh Veliz MD Unavailable [phone] Luis Alberto Holm MD Unavailable [phone] Emani Bartholomew Primary Care Provider + Reason for Visit * Reason Comments Medication Refill Encounter Details Date Type Department Care Team (Late st Contact Info) Description 08/13/2022 Refill [facility] #2 [place] [address] Ruben Bear MD #[address] [address] Medication Refill Social History Tobacco Use Types [...] Dept 07/16/22 Office Visit [facility] 05/28/22 Office Visit Ruben Bear MD [facility] Robert Showing recent visits within past 365 days and meeting all other requirements Future Appointments No visits were found meeting these conditions. Showing future appointments within next 90 days and meeting all other requirements documented in this encounter Plan of Treatment Upcoming Encounters Date Type Department Care Team (Late st Contact Info) Description 07/22/2025 3:30 PM CDT Office Visit [facility] - Family Medicine - Robert [address] [place] [address] Emani Bartholomew, ROSEMARY [address]2 [place] [address] documented as of this encounter Visit Diagnoses Not on filedocumented in this encounter Additional Health Concerns Infection Onset Date Last Indicated Resolved Time COVID - 19 05/29/2023 05/29/2023 06/08/2023 12:1 6 AM PINSETTER MECHANIC HELPER Respiratory Rule-Out 05/29/2023 05/29/2023 024 11:12 AM PINSETTER MECHANIC HELPER C. difficile Rule-Out 05/29/2023 05/29/20232023 12:16 AM PINSETTER MECHANIC HELPER Respiratory Rule-Out 07/31/2023 07/31/2023 024 9:22 AM CDT COVID - 19 07/31/2023 07/31/2023 07/31/2023 9:21 AM CDT Assessment Noted Time PHQ-9 Depression Total Score: 20 021 1:00 PM CDT documented as of this encounter Care Teams Human Service Specialist Relationship Specialty Start Date End Date Aurelia Luciano MD PCP - General Family Medicine 04/12/15 07/16/23 Emani Bartholomew [facility] #2 [place] [address] PCP - General Physician Whip Sawyer 07/17/23 Josh Veliz MD [address] [address] General Surgery 07/11/15 Luis Alberto Holm MD 6810 [facility] 162 [facility] [address] [place] [address] Obstetrics & Gynecology 07/18/16 documented as of this encounter
--- NOTE | 2024-12-09 08:44 | ED.URI ---
HPI - URI/Sore Throat General Chief Complaint: Upper Respiratory Infection Stated Complaint: Cold Symptoms Time Seen by Provider: 12/09/24 08:29 Source: patient and RN notes reviewed Mode of arrival: ambulatory Limitations: no limitations History of Present Illness HPI Narrative: Patient presents today with 2 week history of cough, sinus pressure, sore throat, wheezing at night, and occasional shortness of breath. Reports fever at onset but this has since resolved. Reports symptoms started to improve after 4-5 days, then worsened again. She has tried Mucinex, allergy medication, Tylenol, and ibuprofen with little relief and currently rates her pain 6/10. Denies history of asthma or COPD. No recent antibiotic use. 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 Related Data Home Medications ?Medication ?Instructions ?Recorded ?Confirmed ?Last Taken ?Type calcium carbonate (Calcium 600) 600 mg PO DAILY 05/07/23 06/02/24 Unknown History cholecalciferol (vitamin D3) 25 25 mcg PO DAILY 05/07/23 06/02/24 Unknown History mcg (1,000 unit) capsule multivitamin 1 tablet PO DAILY 05/07/23 06/02/24 Unknown History Allergies Allergy/AdvReac Type Severity Reaction Status Date / Time Sulfa (Sulfonamide Allergy Intermediate Hives Verified 12/09/24 08:29 Antibiotics) [facility] Past Medical History Medical History (Updated 12/09/24 @ 08:49 by Stella Soto, [facility], ) Anemia Vaginal delivery Surgical History Surgical History [place] teeth removed Previous section Social History Social History Smoking status: Never smoker Second hand tobacco smoke exposure: No Alcohol intake: current Substance use type: does not use Do You Feel Safe in your Home?: Yes Lack of Transportation: No Lack of Food: Never True Current Housing: I Have Housing Concerned About Future Housing: No Difficulty Paying Gas/Electric Bills: No Difficulty Paying for Meds: No Currently Unemployed: No Education: High School Diploma/GED Difficulty w/ Childcare or Family Care: No Living arrangements: with family Gender identity (if verbalized by the patient): Female Comments At time of signature, I have reviewed and agree with nursing past medical, surgical, social and family history unless otherwise noted. Please see nursing chart for further information. There is no relevant family history pertinent to the presenting complaint Exam Narrative: GENERAL: Mildly-appearing, well-nourished, and in no acute distress. HEAD: Normocephalic, atraumatic. EYES: EOMI. No redness or drainage. Conjunctivae normal. ENT: Mucous membranes pink and moist. Nares congested with rhinorrhea. TMs normal bilaterally. Throat normal. Uvula midline. NECK: Normal AROM. Supple. No lymphadenopathy. CHEST: No respiratory distress. Clear to auscultation. Deep breath elicits coughing episodes. HEART: Regular rate and rhythm. No murmur appreciated. EXTREMITIES: Normal range of motion. No edema. SKIN: Warm, dry, no rash. Capillary refill normal. Normal skin turgor. NEURO: No focal deficits. Alert and oriented x3. Gait steady. PSYCH: Normal affect. No signs of depression or anxiety. Course Course Level of Care: Express Care Visit Vital Signs Vital signs: Vital Signs Temperature 98.6 F 12/09/24 08:21 Pulse Rate 86 12/09/24 08:21 Respiratory Rate 16 12/09/24 08:21 Blood Pressure 102/60 12/09/24 08:21 Pulse Oximetry 99 12/09/24 08:21 Oxygen Delivery Room Air 12/09/24 08:21 Temperature 98.6 F 12/09/24 08:21 Pulse Rate 86 12/09/24 08:21 Respiratory Rate 16 12/09/24 08:21 Blood Pressure 102/60 12/09/24 08:21 Pulse Oximetry 99 12/09/24 08:21 Oxygen Delivery Room Air 12/09/24 08:21 Review MDM - URI/Sore Throat MDM Narrative Medical decision making narrative: 59-year-old female patient presents today with a 2 week history of upper respiratory symptoms and occasional shortness of breath. Fever at onset, but this has since resolved. Symptoms better after 4-5 days then worsened again. OTC treatment with little relief. Patient will be treated with Augmentin, prednisone, Tessalon Perles, and an albuterol inhaler for sinusitis and bronchitis. Vital signs stable. Patient agrees with plan. Anticipatory guidance given. Differential Diagnosis Differential diagnosis: Likely upper respiratory infection, sinusitis, viral infection and bronchitis Critical Care Time Critical Care Time Critical Care Time: No Discharge Plan Discharge Clinical Impression: Bronchitis Sinusitis Qualifiers: Sinusitis location: unspecified location Chronicity: acute Recurrence: non-recurrent Qualified Code(s): J01.90 - Acute sinusitis, unspecified Patient Disposition: Home Condition: Stable Instructions: Antibiotic Form, Sinusitis (ED), Acute Bronchitis (ED) Additional Instructions: Please take all medications as prescribed. Rest and stay hydrated. Follow-up with your PCP in 3 days if symptoms are not improving. Go to the ER immediately if symptoms worsen to include new onset fever greater than 100.3, worsening shortness of breath, chest pain. Patient Language: Lao Prescriptions: New benzonatate 200 mg capsule 200 mg PO TID PRN (Reason: cough) Qty: 30 0RF amoxicillin-pot clavulanate 875-125 mg tablet 1 tablet PO Q12H 10 Days Qty: 20 0RF albuterol sulfate 90 mcg/actuation HFA aerosol inhaler 2 inh inhalation Q4-6H PRN (Reason: shortness of breath or wheezing) Qty: 8.5 0RF (DME) BreatheRite MDI Spacer Spacer See Rx Instructions .ROUTE .MEDSUPPLY Qty: 1 0RF Rx Instructions: As directed prednisone 20 mg tablet 40 mg PO DAILY 5 Days Qty: 10 0RF No Action multivitamin Tablet 1 tablet PO DAILY calcium carbonate [Calcium 600] 600 mg calcium (1,500 mg) tablet 600 mg PO DAILY cholecalciferol (vitamin D3) 25 mcg (1,000 unit) capsule 25 mcg PO DAILY Follow-up/Referrals: [place],ARUN Marion [Primary Care Provider] - Time of Disposition: 08:50
== END 2024-12-09 08:54 | disposition home or self-care (01) ==
PROVIDERS: Emergency Provider Nurse Practitioner; PCP Physician Assistant
DX: J40 Bronchitis, not specified as acute or chronic (principal); J01.90 Acute sinusitis, unspecified
CPT/HCPCS: 99213; G0463

== ENCOUNTER 2025-01-01 11:40 | Outpatient (CLI) | payer BC, SELFPAY ==
--- OUTSIDE RECORDS SUMMARY | 2018-12-19 | XMS_ITS | Encounter Summary ---
Author Organization [facility] Healthcare Address [address] [place] [address] Care Team Providers Care Creping Machine Operator Name Role Phone Unavailable Primary Care Provider Unavailabl e Reason for Visit * Diagnostic Imaging (Routine) - Closed Specialty Diagnoses / Procedures Referred By Stan t Referred To Contact Procedures Breast Imaging Screening Outside Reference Kishan Danielle NP Phone: tel: fax: Referral ID Status Reason Start Date Expiration Date Visits Re quested Visits Authorized [id number] Closed 07/12/2022 08/11/2023 1 1 Encounter Details Date Type Department Care Team (Late st Contact Info) Description 12/19/2018 Hospital Encounter [facility] [address] [place] [address] Social History Tobacco Use Types Packs/Day Years Used Date Smoking Tobacco: Never Smokeless Tobacco: Never AUDIT-C Answer Date Recorded Q1: How often do you have a drink containing alc ohol? Monthly or less 08/09/2022 Q2: How many drinks containi ng alcohol do you have on a typical day when you are drinking? 1 or 2 08/09/2022 Q3: How often do you have si x or more drinks on one occasion? Less than monthly 08/09/2022 Personal Safety Answer Date Recorded Have you ever been in or are you currently in a harmful physical or emotional relationship or is someone making you feel afraid or unsafe? Denies 09/22/2024 Comments No Sex and Gender Information Value Date Recorded Sex Assigned at Not on file Legal Sex Female 3:10 PM DRUG ROOM OPERATOR Gender Identity Not on file Sexual Orientation Not on file documented as of this encounter Functional Status * AUDIT-C Score Answer Date of Assessment Author 2 08/09/2022 1:21 PM Corin Thomason CMA * Question Answer Date of Assessment Author Q1: How often do you have a drink containing alcohol? Monthly or less 08/09/2022 1:21 PM Corin Thomason CMA Q2: How many drinks containing alcohol do you have on a typical day when you are drinking? 1 or 2 08/09/2022 1:21 PM Corin Thomason CMA Q3: How often do you have six or more drinks on one occasion? Less than monthly 08/09/2022 1:21 PM Corin Thomason CMA documented as of this encounter Plan of Treatment Not on file documented as of this encounter Procedures Procedure Name Priority Date/Time Associated Diagnosis Comments BREAST IMAGING MG SCREENING OUTSIDE REFERENCE Routine 12/19/2018 12:00 AM CDT documented in this encounter Results * Breast Imaging Screening Outside Reference (12/19/2018 12:00 AM CDT) Impressions [facility] - 07/12/2022 2:37 PM DRUG ROOM OPERATOR These images are for Reference purposes only and have not been reviewed by [facility]. There will be no report generated by a [facility] Radiologist. Narrative [facility] - 07/12/2022 2:37 PM DRUG ROOM OPERATOR EXAMINATION: Images For Reference Purposes Only us Kishan Danielle NP IMG MAMMO PROCEDURES Final Result [facility] documented in this encounter Visit Diagnoses Not on filedocumented in this encounter
--- OUTSIDE RECORDS SUMMARY | 2020-03-28 01:00 | XMS_ITS | Encounter Summary ---
Author Organization [facility] Healthcare Address [address] [place] [address] Care Team Providers Care Chief Nuclear Medicine Technologist Name Role Phone Aurelia Luciano MD Primary Care Provider [phone] Reason for Visit * Diagnostic Imaging (Routine) - Closed Specialty Diagnoses / Procedures Referred By Stan rosario Referred To Contact Procedures Breast Imaging Screening Outside Reference Kishan Danielle NP Phone: tel: fax: Referral ID Status Reason Start Date Expiration Date Visits Re quested Visits Authorized [id number] Closed 07/12/2022 08/11/2023 1 1 Encounter Details Date Type Department Care Team (Late st Contact Info) Description 03/28/2020 Hospital Encounter [facility]) [address] [place] [address] [phone] Social History Tobacco Use Types Packs/Day Years [...] on file Legal 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 There will be no report generated by a [facility] Radiologist. Narrative [facility] - 07/12/2022 2:36 PM AUTO GARAGE MECHANIC EXAMINATION: Images For Reference Purposes Only us Kishan Danielle NP IMG MAMMO PROCEDURES Final Result [facility] documented in this encounter Visit Diagnoses Not on filedocumented in this encounter Care Teams Chief Nuclear Medicine Technologist Relationship Specialty Start Date End Date Aurelia Luciano MD PCP - General Family Medicine 01/29/19 07/17/23 documented as of this encounter
--- OUTSIDE RECORDS SUMMARY | 2025-01-01 11:43 | XMS_ITS | Clinical Summary ---
Author Organization [id number] Address [address] [place] [address] Care Team Providers Care Printing Gray Cloth Tender Name Role Phone Luis Alberto Holm MD Unavailable [phone] Emani Bartholomew Primary Care Provider [phone] Allergies Active Allergy Reactions Criticality Noted Date [...] Department Care Team Description 11/16/2024 Orders Only [facility] Medicine Surgery [facility] Floor [address] [place] [address] Lizbeth Oswald PA Abnormal mammogram of both breasts (Primary Dx) 11/13/2024 9:15 AM CDT - 11/13/2024 11:59 PM CDT Hospital Encounter [facility] - Breast Imaging [address] [place] [address] Floor [address] [place] [address] Abnormal mammogram of both breasts Discharge Disposition: Discharge to home or self care 11/13/2024 9:00 AM CDT Office Visit [facility] Medicine Surgery [facility] [place] [address] [place] [address] Lizbeth Oswald PA Radial scar of right breast (Primary Dx); Encounter for screening mammogram for malignant neoplasm of breast from Last 3 Months Immunizations Immunization Administration [...] on file Legal Sex Female 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 Gender Identity Not on file Sexual Orientation [...] this topic Medical Devices Implanted Type Area Showroom Manager Device Identifier Shelf Expiration Date Model / Serial / Lot Bard Peripheral Vascular Ultraclip Bard 17ga 10cm 2 Trigger Permanent Ultrasound [id number] - [id number] Implanted:Qty: 1 on 08/29/2022 at [facility] [employer]ipheral [employer]ascular [id number] / / [employer] Eviva 13cm Identifier Biopsy Site Xhour-Wujwi-88 - [id number] Implanted:Qty: 1 on 03/17/2024 at [facility] [employer] [id number] 11/28/2024 [facility]13 / / [id number] Procedures Procedure Name Priority Date/Time Associated Diagnosis Comments DIAGNOSTIC MAMMOGRAM BILATERAL W KOFI Schedule Routine, Read Routine (OP Routine) 11/13/2024 10:00 AM CDT Abnormal mammogram of both breasts from Last 3 Months Results * Diagnostic [...] MD PhD IMG MAMMO PROCEDURES Final Result from Last [address] [place] [id number] [place] Member Subscriber Plan / Payer (Ef fective 2019-Present) Name:EulalioohJessica Relation to Subscriber:Self Name:Jessica Batres Cristel Payer ID:[id number] (NAIC) Type:HEALTHCARE/EXCHANGE Address: [address] [place] Care Teams Printing Gray Cloth Tender Relationship Specialty Start Date End Date Emani Bartholomew PA 2 [facility] [address] [place] [address] PCP - General Franchise Field Consultant 07/18/23 Luis Alberto Holm MD 6810 [facility] 162 [facility] [address] [place] [address] Referring Physician Obstetrics and Gynecology 07/09/22
--- OUTSIDE RECORDS SUMMARY | 2025-01-01 11:44 | XMS_ITS | Clinical Summary ---
Author Organization [facility] Address [address] [place] [address] Phone Care Team Providers Care Melt House Centrifugal Operator Name Role Phone Josh Veliz MD Unavailable [phone] Luis Alberto Holm MD Unavailable [phone] Emani Bartholomew Primary Care Provider + Allergies [...] Lnp-s, Pf, 3 0 Mcg/0.3 Ml Dose (Gracious Eloise) 07/22/2020,07/02/2020 Influenza Vaccine 01/26/2019 Influenza Vaccine, MDCK,quad rivalent, pres free 02/07/2023,03/09/2022 Influenza Vaccine, Quadrivalent, PF 01/17/2021,0 01/26/2019,03/05/2018 Influenza, Injectable, Quadrivalent 01/26/2019 Influenza,Split Virus,Trivalent,Injectable,PF 05/07/2024 Pneumococcal conjugate PCV20 , polysaccharide [id number] conjugate, adjuvant, PF 07/20/2024 TD VACCINE 05/06/2004 [...] the past 12 months has th e [employer], gas, oil, or water [employer] threatened to shut off services in your home? No 07/02/2023 Social Connection and Isolation Panel Answer Date Recorded In a typical week, how many times do you talk on the phone with family, friends, or neighbors? More than three times a week 07/02/2023 How often do you get togethe r with friends or relatives? Once a week 07/02/2023 Attends [employer] Services Not on file 07/02 Active Member [...] Score - Questions 1-9 20 0 01/2021 [facility] - Occupational Stress Questionnaire Answer Date Recorded [...] place to sleep or slept in a care home (including now)? No 07/02/2023 Education Answer Date [...] Visit [facility] - Family Medicine [facility] #2 [place] [address] Emani Bartholomew, PAC [address] [place] [address] Health Maintenance Due Date Last Done Comments [...] GENERIC 09/02/2023 12:00 AM CDT PATHOLOGY CYTOLOGY REPORT ANALYST Routine 12/25/2018 from Last 3 Months or Most Recently Relevant to Health Maintenance Results * MAMMOGRAM BILATERAL MISCELLANEOUS (09/02/2023 12:00 AM CDT) 09/02/2023 us Provider Scan IMG MAMMO ORDERABLES Final Resul t SCAN * PATHOLOGY CYTOLOGY REPORT ANALYST (12/25/2018) Specimen of unknown material (specimen) Luis Alberto Holm MD PATHOLOGY/CYTOLOGY ORDERABLE S Final Result from Last 3 Months or Most Recently Relevant to Health Maintenance [place] [address] [facility] [place] [address] Care Teams Melt House Centrifugal Operator Relationship Specialty Start Date End Date Emani Bartholomew PAC [address]2 [place] [address] PCP - General Physician Web Software Engineer 07/17/23 Josh Veliz MD #2 [facility] [address] [place] [address] General Surgery 07/11/15 Luis Alberto Holm MD 6810 [facility] 162 [facility] [address] [place] [address] Obstetrics & Gynecology 07/18/16
--- OUTSIDE RECORDS SUMMARY | 2025-01-01 11:44 | XMS_ITS | Encounter Summary ---
Author Organization [facility] Address [address] [place] [address] Phone Care Team Providers Care Auto Parts Counter Person Name Role Phone Aurelia Luciano MD Primary Care Provider Josh Veliz MD Unavailable [phone] Luis Alberto Holm MD Unavailable [phone] Emani Bartholomew Primary Care Provider + Reason for Visit * Reason Comments Medication Refill Encounter Details Date Type Department Care Team (Late st Contact Info) Description 08/13/2022 Refill [facility] - Family [facility] #2 [place] [address] Ruben Bear MD #[address] [address] Medication Refill Social History Tobacco Use Types [...] Dept 07/16/22 [facility] Visit [facility] 05/28/22 Office Visit Ruben Bear MD [facility] Robert Showing recent visits within past 365 days and meeting all other requirements Future Appointments No visits were found meeting these conditions. Showing future appointments within next 90 days and meeting all other requirements documented in this encounter Plan of Treatment Upcoming Encounters Date Type Department Care Team (Late st Contact Info) Description 07/22/2025 3:30 PM CDT Office Visit [facility] - Family Medicine - Robert [address]2 [place] [address] Emani Bartholomew, ROSEMARY [address] [place] [address] documented as of this encounter Visit Diagnoses Not on filedocumented in this encounter Additional Health Concerns Infection Onset Date Last Indicated Resolved Time COVID - 19 05/29/2023 05/29/2023 06/08/2023 12:1 6 AM AIR POLLUTION COMPLIANCE INSPECTOR Respiratory Rule-Out 05/29/2023 05/29/2023 024 11:12 AM AIR POLLUTION COMPLIANCE INSPECTOR C. difficile Rule-Out 05/29/2023 05/29/20232023 12:16 AM AIR POLLUTION COMPLIANCE INSPECTOR Respiratory Rule-Out 07/31/2023 07/31/2023 024 9:22 AM CDT COVID - 19 07/31/2023 07/31/2023 07/31/2023 9:21 AM CDT Assessment Noted Time PHQ-9 Depression Total Score: 20 021 1:00 PM CDT documented as of this encounter Care Teams Auto Parts Counter Person Relationship Specialty Start Date End Date Aurelia Luciano MD PCP - General Family Medicine 04/12/15 07/16/23 Emani Bartholomew [facility] #2 [place] [address] PCP - General Physician Export Clerk 07/17/23 Josh Veliz MD #[address] [address] General Surgery 07/11/15 Luis Alberto Holm MD 6810 [facility] 162 [facility] 105 [place] [address] Obstetrics & Gynecology 07/18/16 documented as of this encounter
[2025-01-01 12:23] LABS: Calcium 9.1 mg/dL (8.4-10.2)
== END 2025-01-01 11:41 | disposition home or self-care (01) ==
LOC: ANHLAB 11:41
PROVIDERS: PCP Physician Assistant; Visit Provider Obstetrics & Gynecology
DX: M81.0 Age-related osteoporosis without current pathological fracture (principal)
CPT/HCPCS: 36415; 82306; 82310